=== PATIENT | male | born 1965 | race American Indian/Alaskan Native ===

== ENCOUNTER 2017-07-19 11:19 | Inpatient (IN) | payer OTHER ==
[2017-07-19] MEDS ORDERED: Sodium Chloride 0.9% 1,000 ML IV STA ×4 (11:33→13:58)
[2017-07-19] MEDS ORDERED: Glucagon Recombinant 1 mg Inj IM PRN ×2 (11:34→22:18)
[2017-07-19] MEDS ORDERED: Dextrose 50% SYRINGE Inj (50 ml) IV PRN ×2 (11:34→22:18)
[2017-07-19] MEDS ORDERED: Insulin Regular 100 units/ml SC STA (11:34)
[2017-07-19] MEDS ORDERED: Insulin Regular 100 units/ml ONE (11:43)
[2017-07-19] MEDS ORDERED: Insulin Regular 100 units/ml IV STA (11:45)
--- NOTE | 2017-07-19 11:54 | ED PDOC ---
Hyperglycemia/Hypoglycemia Time Seen by Provider: 07/19/17 11:24 Chief Complaint (Nursing): High Blood Sugar Chief Complaint (Provider): High Blood Sugar History Per: EMS History/Exam Limitations: other (patient unresponsive upon ED arrival ) Onset/Duration Of Symptoms: Hrs (prior to arrival ) : The patient does not have any of the infectious symptoms listed except for those marked. Additional Complaint(s): Jose Reina is a 52 year old male brought to the ED via paramedics after being found unresponsive with rapid breathing. The patients Accucheck levels in the field were above 500. Upon arrival, patient is unresponsive, therefore unable to provide further history. PMD: TBD Past Medical History Reviewed: Historical Data, Nursing Documentation, Vital Signs Vital Signs: Last Vital Signs Temp 99.6 F 07/19/17 11:22 Pulse 131 H 07/19/17 11:22 Resp 26 H 07/19/17 11:22 BP 113/82 07/19/17 11:22 Pulse Ox 94 L 07/19/17 11:22 - Family History Family History: States: Unknown Family Hx - Allergies Allergies/Adverse Reactions: Allergies Allergy/AdvReac Type Severity Reaction Status Date / Time Unobtainable Allergy Verified 07/19/17 11:22 Review of Systems Review Of Systems: ROS cannot be obtained secondary to pt's inabilty to answer questions. (patient unresponsive, therefore unable to obtain history) Physical Exam - Reviewed Nursing Documentation Reviewed: Yes Vital Signs Reviewed: Yes - Physical Exam Appears: Positive for: Non-toxic Head Exam: Positive for: ATRAUMATIC, NORMOCEPHALIC ENT: Positive for: Pharynx Is (mucous membranes dry ) Cardiovascular/Chest: Positive for: Regular Rate, Rhythm (regular rhythm ), Tachycardia Respiratory: Positive for: Normal Breath Sounds (clear to ausculatation bilaterally ), Other (rapid breathing ) Gastrointestinal/Abdominal: Positive for: Normal Exam, Soft. Negative for: Tenderness Extremity: Positive for: Normal ROM. Negative for: Deformity, Swelling Neurologic/Psych: Positive for: Other (responsive to painful stimuli by withdrawing ). Negative for: Motor/Sensory Deficits - ECG O2 Sat by Pulse Oximetry: 94 (RA) Pulse Ox Interpretation: Normal - Progress Re-evaluation Time: 12:04 Condition: Re-examined, Unchanged - Critical Care Total Time (In Min): 30 Documented Critical Care: Time excludes all time spent performint seperately billable procedures Medical Decision Making Medical Decision Making: Time: 11:24 Impression: Patient unresponsive, elevated Accucheck levels Plan: * ABG * ED EKG * CMP * CBC (with differential) * Glucose, Blood, POC * Hypoglycemia Oral Treatment PRN * Dextrose 50% Inj IV * Glucagen Diagnostic kit IM PRN * Glutose 15 PO PRN * HumuLIN R 10 units SC * HumuLIN R 10 units IV * NS 0.9% 100 ml HumuLIN R 100 units IV 11 units/hr * NS 0.9% 1,000 ml IV 1,000 mls/hr * [RAD] Chest Portable * Reevaluation Scribe Attestation: Documented by Yadira Rojas, acting as a scribe for Odell Castellon MD. Provider Scribe Attestation: All medical record entries made by the Scribe were at my direction and personally dictated by me. I have reviewed the chart and agree that the record accurately reflects my personal performance of the history, physical exam, medical decision making, and the department course for this patient. I have also personally directed, reviewed, and agree with the discharge instructions and disposition. Disposition - Clinical Impression Clinical Impression: DKA (diabetic ketoacidosis) - Patient ED Disposition Is Patient to be Admitted: Yes - Disposition Referrals: Provider GERHARD, [Primary Care Provider] - Disposition Time: 12:03 Condition: GUARDED Forms: [employer] (Romanian) - Pt Status Changed To: Hospital Disposition Of: Inpatient - Admit Certification Admit to Inpatient:: After my assessment, the patient will require hospitalization for at least two midnights. This is because of the severity of symptoms shown, intensity of services needed, and/or the medical risk in this patient being treated as an outpatient. - POA Present On Arrival: None
[2017-07-19 11:58] LABS: ABG ALLEN TEST YES; ARTERIAL BLOOD GAS HCO3 5.8 mmol/L (21-28); ARTERIAL BLOOD GAS PH 7.09 (7.35-7.45); ARTERIAL BLOOD GAS PO2 106 mm/Hg (80-100)
[2017-07-19 11:59] LABS: BASO # 0.1 K/uL (0.0-0.2); BASO % 0.4 % (0.0-2.0); HEMATOCRIT 50.2 % (35.0-51.0); LYMPH # 0.7 K/uL (1.0-4.3); LYMPH % 4.2 % (20.0-40.0); MEAN CELL VOLUME 95.2 fl (80.0-94.0); MEAN CORPUSCULAR HEMOGLOBIN 29.2 pg (27.0-31.0); MEAN CORPUSCULAR HGB CONC 30.7 g/dL (33.0-37.0); MONO % 6.2 % (0.0-10.0); NEUT # 14.2 K/uL (1.8-7.0); NEUT % 89.2 % (50.0-75.0); PLATELET COUNT 363 K/uL (130-400); WHITE BLOOD COUNT 15.9 K/uL (4.8-10.8)
--- NOTE | 2017-07-19 12:41 | CARD ---
APPROVED REPORT EKG Measurement Heart [id number] <Conclusion> Sinus tachycardia Low voltage QRS Poor R wave progression V1 To V3 ? Old Anterior wall NC Abnormal ECG
[2017-07-19 12:59] LABS: MYELOCYTE 1 % (0-0); NEUTROPHIL 89 % (42-75); TOTAL CELLS COUNTED 100
[2017-07-19 13:24] LABS: ALKALINE PHOSPHATASE 148 U/L (38-126); ALT/SGPT 21 U/L (21-72); AST/SGOT 14 U/L (17-59); BILIRUBIN,TOTAL 0.5 mg/dl (0.2-1.3); BLOOD UREA NITROGEN 46 mg/dl (9-20); CALCIUM 9.6 mg/dL (8.4-10.2); CHLORIDE 111 mmol/L (98-107); GFR AFRICAN-AMERICAN 29; POTASSIUM 6.3 MMOL/L (3.6-5.0); SODIUM 146 mmol/l (132-148); TOTAL PROTEIN 8.7 G/DL (6.3-8.2)
[2017-07-19 13:30] LABS: GLUCOSE,RANDOM 1022 mg/dL (75-110)
[2017-07-19 13:32] LABS: CARBON DIOXIDE < 5 mmol/L (22-30)
--- NOTE | 2017-07-19 15:26 | CP.CCUPN ---
CCU Subjective - Physician Review Events Since Last Encounter (Free Text): 07/19/17 15:24 52 male with history of asthma, allergies, newly diagnosed DM was brought to ER for polydypsia, polyuria, lethergy, no chest pain, no cough, no fever, foun to have hyperglycemia with DKA CCU Objective - Vital Signs / Intake & Output Vital Signs (Last 4 hours): Vital Signs Temp Pulse Resp BP Pulse Ox 07/19/17 14:39 98.0 F 120 H 29 H 149/93 H 100 07/19/17 12:31 129 H 31 H 142/57 L 98 07/19/17 12:19 134 H 40 H 116/76 96 07/19/17 12:04 94 L Intake and Output (Last 8hrs): Intake & Output 07/19/17 07/19/17 07/19/17 06:59 14:59 22:59 Weight 260 lb - Physical Exam Head: Positive for: Atraumatic, Normocephalic Pupils: Positive for: PERRL Extroacular Muscles: Positive for: EOMI Conjunctiva: Positive for: Normal Mouth: Positive for: Dry Pharnyx: Positive for: Normal Nose (External): Positive for: Atraumatic Nose (Internal): Positive for: Normal Inspection Neck: Positive for: Normal Range of Motion Respiratory/Chest: Positive for: Clear to Auscultation Cardiovascular: Positive for: Normal S1, S2, Tachycardic Abdomen: Positive for: Normal Bowel Sounds Upper Extremity: Positive for: Normal Inspection Lower Extremity: Positive for: Normal Inspection Skin: Positive for: Warm, Dry Psychiatric: Positive for: Alert, Lethargic - Medications Active Medications: Active Medications Generic Name Dose Route Start Last Admin Trade Name Freq PRN Reason Stop Dose Admin Dextrose 0 ml 07/19/17 11:34 Dextrose 50% Inj IV STAT PRN Hypoglycemia Protocol Protocol Dextrose 0 gm 07/19/17 11:34 Glutose 15 PO ONCE PRN Hypoglycemia Protocol Protocol Glucagon 0 mg 07/19/17 11:34 Glucagen Diagnostic Kit IM STAT PRN Hypoglycemia Protocol Protocol Insulin Human Regular 100 101 mls @ 11.11 mls/hr 07/19/17 11:45 07/19/17 12: 33 units/ Sodium Chloride IV 07/19/17 20:50 11.11 mls/hr .[id number] PREETHI Administration Protocol 11 UNITS/HR - Patient Studies Lab Studies: Lab Studies 07/19/17 07/19/17 07/19/17 Range/Units 15:11 12:45 11:47 WBC (4.8-10.8) K/uL RBC (4.40-5.90) Mil/uL Hgb (12.0-18.0) g/dL Hct (35.0-51.0) % MCV (80.0-94.0) fl MCH (27.0-31.0) pg MCHC (33.0-37.0) g/dL RDW (11.5-14.5) % Plt Count (130-400) K/uL MPV (7.2-11.7) fl Neut % (Auto) (50.0-75.0) % Lymph % (Auto) (20.0-40.0) % [place] % (Auto) (0.0-10.0) % Eos % (Auto) (0.0-4.0) % Baso % (Auto) (0.0-2.0) % Neut # (1.8-7.0) K/uL Lymph # (1.0-4.3) K/uL [place] # (0.0-0.8) K/uL Eos # (0.0-0.7) K/uL Baso # (0.0-0.2) K/uL Neutrophils % (Manual) (42-75) % Lymphocytes % (Manual) (20-50) % Monocytes % (Manual) (0-10) % Myelocytes % (0-0) % Platelet Estimate (NORMAL) Anisocytosis (manual) pCO2 10 L* (35-45) mm/Hg pO2 106 H (80-100) mm/Hg HCO3 5.8 L* (21-28) mmol/L ABG pH 7.09 L* (7.35-7.45) ABG Total CO2 3.3 L (22-28) mmol/L ABG O2 Saturation 100.4 H (95-98) % ABG Base Excess -24.5 L (-2.0-3.0) mmol/L Syed Test Yes ABG Potassium 4.7 (3.6-5.2) mmol/L A-a O2 Difference 595.0 mm/Hg Sodium 146 142.0 (132-148) mmol/L Chloride 111 H 110.0 H (98-107) mmol/L Glucose > 750 H* (75-110) mg/dL Lactate 3.7 H (0.7-2.1) mmol/L FiO2 100.0 % Crit Value Called To Dr niecy rodarte Crit Value Called By 292 Crit Value Read Back Y Blood Gas Notified Time 1157 Potassium 6.3 H* (3.6-5.0) MMOL/L Carbon Dioxide < 5 L* (22-30) mmol/L Anion Gap 36 H (10-20) BUN 46 H (9-20) mg/dl Creatinine 2.8 H (0.8-1.5) mg/dl Est GFR ( Amer) 29 Est GFR (Non-Af Amer) 24 POC Glucose (mg/dL) > 500 H* (65-110) mg/dL Random Glucose 1022 H* (75-110) mg/dL Calcium 9.6 (8.4-10.2) mg/dL Total Bilirubin 0.5 (0.2-1.3) mg/dl AST 14 L (17-59) U/L ALT 21 (21-72) U/L Alkaline Phosphatase 148 H (38-126) U/L Total Protein 8.7 H (6.3-8.2) G/DL Albumin 4.4 (3.5-5.0) g/dL Globulin 4.3 H (2.2-3.9) gm/dL Albumin/Globulin Ratio 1.0 (1.0-2.1) Arterial Blood Potassium 4.7 (3.6-5.2) mmol/L 07/19/17 Range/Units 11:39 WBC 15.9 H (4.8-10.8) K/uL RBC 5.27 (4.40-5.90) Mil/uL Hgb 15.4 (12.0-18.0) g/dL Hct 50.2 (35.0-51.0) % MCV 95.2 H (80.0-94.0) fl MCH 29.2 (27.0-31.0) pg MCHC 30.7 L (33.0-37.0) g/dL RDW 15.0 H (11.5-14.5) % Plt Count 363 (130-400) K/uL MPV 11.0 (7.2-11.7) fl Neut % (Auto) 89.2 H (50.0-75.0) % Lymph % (Auto) 4.2 L (20.0-40.0) % [place] % (Auto) 6.2 (0.0-10.0) % Eos % (Auto) 0.0 (0.0-4.0) % Baso % (Auto) 0.4 (0.0-2.0) % Neut # 14.2 H (1.8-7.0) K/uL Lymph # 0.7 L (1.0-4.3) K/uL [place] # 1.0 H (0.0-0.8) K/uL Eos # 0.0 (0.0-0.7) K/uL Baso # 0.1 (0.0-0.2) K/uL Neutrophils % (Manual) 89 H (42-75) % Lymphocytes % (Manual) 4 L (20-50) % Monocytes % (Manual) 6 (0-10) % Myelocytes % 1 H (0-0) % Platelet Estimate Normal (NORMAL) Anisocytosis (manual) Slight pCO2 (35-45) mm/Hg pO2 (80-100) mm/Hg HCO3 (21-28) mmol/L ABG pH (7.35-7.45) ABG Total CO2 (22-28) mmol/L ABG O2 Saturation (95-98) % ABG Base Excess (-2.0-3.0) mmol/L Syed Test ABG Potassium (3.6-5.2) mmol/L A-a O2 Difference mm/Hg Sodium (132-148) mmol/L Chloride (98-107) mmol/L Glucose (75-110) mg/dL Lactate (0.7-2.1) mmol/L FiO2 % Crit Value Called To Crit Value Called By Crit Value Read Back Blood Gas Notified Time Potassium (3.6-5.0) MMOL/L Carbon Dioxide (22-30) mmol/L Anion Gap (10-20) BUN (9-20) mg/dl Creatinine (0.8-1.5) mg/dl Est GFR ( Amer) Est GFR (Non-Af Amer) POC Glucose (mg/dL) (65-110) mg/dL Random Glucose (75-110) mg/dL Calcium (8.4-10.2) mg/dL Total Bilirubin (0.2-1.3) mg/dl AST (17-59) U/L ALT (21-72) U/L Alkaline Phosphatase (38-126) U/L Total Protein (6.3-8.2) G/DL Albumin (3.5-5.0) g/dL Globulin (2.2-3.9) gm/dL Albumin/Globulin Ratio (1.0-2.1) Arterial Blood Potassium (3.6-5.2) mmol/L Laboratory Results - last 24 hr 07/19/17 07/19/17 07/19/17 11:39 11:47 12:45 WBC 15.9 H RBC 5.27 Hgb 15.4 Hct 50.2 MCV 95.2 H MCH 29.2 MCHC 30.7 L RDW 15.0 H Plt Count 363 MPV 11.0 Neut % (Auto) 89.2 H Lymph % (Auto) 4.2 L [place] % (Auto) 6.2 Eos % (Auto) 0.0 Baso % (Auto) 0.4 Neut # 14.2 H Lymph # 0.7 L [place] # 1.0 H Eos # 0.0 Baso # 0.1 Neutrophils % (Manual) 89 H Lymphocytes % (Manual) 4 L Monocytes % (Manual) 6 Myelocytes % 1 H Platelet Estimate Normal Anisocytosis (manual) Slight pCO2 10 L* pO2 106 H HCO3 5.8 L* ABG pH 7.09 L* ABG Total CO2 3.3 L ABG O2 Saturation 100.4 H ABG Base Excess -24.5 L Syed Test Yes ABG Potassium 4.7 A-a O2 Difference 595.0 Sodium 142.0 146 Chloride 110.0 H 111 H Glucose > 750 H* Lactate 3.7 H FiO2 100.0 Crit Value Called To Dr niecy rodarte Crit Value Called By 292 Crit Value Read Back Y Blood Gas Notified Time 1157 Potassium 6.3 H* Carbon Dioxide < 5 L* Anion Gap 36 H BUN 46 H Creatinine 2.8 H Est GFR ( Amer) 29 Est GFR (Non-Af Amer) 24 POC Glucose (mg/dL) Random Glucose 1022 H* Calcium 9.6 Total Bilirubin 0.5 AST 14 L ALT 21 Alkaline Phosphatase 148 H Total Protein 8.7 H Albumin 4.4 Globulin 4.3 H Albumin/Globulin Ratio 1.0 Arterial Blood Potassium 4.7 07/19/17 15:11 WBC RBC Hgb Hct MCV MCH MCHC RDW Plt Count MPV Neut % (Auto) Lymph % (Auto) [place] % (Auto) Eos % (Auto) Baso % (Auto) Neut # Lymph # [place] # Eos # Baso # Neutrophils % (Manual) Lymphocytes % (Manual) Monocytes % (Manual) Myelocytes % Platelet Estimate Anisocytosis (manual) pCO2 pO2 HCO3 ABG pH ABG Total CO2 ABG O2 Saturation ABG Base Excess Syed Test ABG Potassium A-a O2 Difference Sodium Chloride Glucose Lactate FiO2 Crit Value Called To Crit Value Called By Crit Value Read Back Blood Gas Notified Time Potassium Carbon Dioxide Anion Gap BUN Creatinine Est GFR ( Amer) Est GFR (Non-Af Amer) POC Glucose (mg/dL) > 500 H* Random Glucose Calcium Total Bilirubin AST ALT Alkaline Phosphatase Total Protein Albumin Globulin Albumin/Globulin Ratio Arterial Blood Potassium EKG/Cardiology Studies: Cardiology / EKG Studies 07/19/17 11:33 ELECTROCARDIOGRAM Stat Comment: Mode Of Transportation: Reason For Exam: DKA 07/19/17 13:58 ELECTROCARDIOGRAM Stat Comment: Mode Of Transportation: Reason For Exam: DKA Assessment/Plan - Assessment and Plan (Free Text) Assessment: A/P DKA, hyperglycemia, newly diagnosed DM, h/o asthma, allergies, dehydration - IV fluid - IV insulin - Follow up electrolyte - Continue DKA insulin prtocol critical care 35 min
--- NOTE | 2017-07-19 15:53 | CP.PCM.HP ---
History of Present Illness - History of Present Illness History of Present Illness: CC: Unresponsive and SOB History of Present Illness: A 52 year old male AAM brought to the ED via paramedics after being found unresponsive with rapid breathing. The patients Accucheck levels in the field were above 500. Upon arrival, patient was unresponsive, therefore unable to provide further history. Recent Diagnosis of DM II but patient did not take his medications. In the ER, patient was found to have Severe DKA with Blood sugar of 1022 mg/dl and with Severe Metabolic Acidosis with PH 7.08, Bicarb <5 and AG 36. Patient Mental status slightly improved with IVF Bolus and IV Regular Insulin, and admitted to ICU on Regualr Insulin Infusion, IVF and Close monitoring of Electrolytes and Neuro checks. Present on Admission - Present on Admission Any Indicators Present on Admission: Yes History of DVT/PE: No History of Uncontrolled Diabetes: Yes Urinary Catheter: No Decubitus Ulcer Present: No Review of Systems - Review of Systems All systems: reviewed and no additional remarkable complaints except Past Patient History - Infectious Disease Hx of Infectious Diseases: None - Past Medical History & Family History Past Medical History?: Yes Past Family History: Reviewed and not pertinent - Past Social History Smoking Status: Never Smoked Alcohol: Social Drugs: Denies - CARDIAC Hx Cardiac Disorders: Yes (HTN) - PULMONARY Hx Respiratory Disorders: Yes (Allergies) - NEUROLOGICAL Hx Neurological Disorder: No - HEENT Hx HEENT Problems: No - RENAL Hx Chronic Kidney Disease: No - ENDOCRINE/METABOLIC Hx Endocrine Disorders: Yes Hx Diabetes Mellitus Type 2: Yes - HEMATOLOGICAL/ONCOLOGICAL Hx Blood Disorders: No - INTEGUMENTARY Hx Dermatological Problems: No - MUSCULOSKELETAL/RHEUMATOLOGICAL Hx Musculoskeletal Disorders: No Hx Falls: No - GASTROINTESTINAL Hx Gastrointestinal Disorders: No - GENITOURINARY/GYNECOLOGICAL Hx Genitourinary Disorders: No - PSYCHIATRIC Hx Psychophysiologic Disorder: No Hx Substance Use: No - SURGICAL HISTORY Hx Surgeries: No - ANESTHESIA Hx Anesthesia: No Meds Home Medications: Home Medication List Medication Instructions Recorded Confirmed Type Insulin Glargine,Hum.rec.anlog 46 unit SQ HS #1 insuln.pen 07/23/17 Rx [Lantus Solostar] Insulin Lispro [Humalog Kwikpen 20 unit SQ AC #1 insuln.pen 07/23/17 Rx U-100] Allergies/Adverse Reactions: Allergies Allergy/AdvReac Type Severity Reaction Status Date / Time egg Allergy ITCHING Verified 07/19/17 12:24 seafood Allergy ITCHING Uncoded 07/19/17 12:24 Physical Exam - Constitutional Appears: Toxic, In Acute Distress, Confused - Head Exam Head Exam: ATRAUMATIC, NORMOCEPHALIC - Eye Exam Eye Exam: EOMI, Normal appearance, PERRL Pupil Exam: NORMAL ACCOMODATION, PERRL - ENT Exam ENT Exam: Mucous Membranes Dry - Neck Exam Neck exam: Positive for: Normal Inspection. Negative for: Lymphadenopathy, Meningismus - Respiratory Exam Respiratory Exam: Accessory Muscle Use, Clear to Auscultation Bilateral, Respiratory Distress - Cardiovascular Exam Cardiovascular Exam: Tachycardia, REGULAR RHYTHM, +S1, +S2 - GI/Abdominal Exam GI & Abdominal Exam: Normal Bowel Sounds, Soft. absent: Tenderness - Extremities Exam Extremities exam: Positive for: normal capillary refill Additional comments: Dark depigmentation to the B/L Lower Legs - Back Exam Back exam: NORMAL INSPECTION. absent: CVA tenderness (L), CVA tenderness (R) - Neurological Exam Neurological exam: CN II-XII Intact Additional comments: Confused. Moves all extremities. - Psychiatric Exam Psychiatric exam: Agitated, Anxious, Flat Affect - Skin Skin Exam: Dry, Intact, Normal Color, Warm Results - Vital Signs Recent Vital Signs: Last Vital Signs Temp 98.0 F 07/19/17 15:43 Pulse 120 H 07/19/17 15:43 Resp 29 H 07/19/17 15:43 BP 149/93 H 07/19/17 15:43 Pulse Ox 100 07/19/17 14:45 - Labs Result Diagrams: 07/21/17 08:20 07/23/17 08:51 Labs: Laboratory Results - last 24 hr 07/19/17 07/19/17 07/19/17 11:39 11:47 12:45 WBC 15.9 H RBC 5.27 Hgb 15.4 Hct 50.2 MCV 95.2 H MCH 29.2 MCHC 30.7 L RDW 15.0 H Plt Count 363 MPV 11.0 Neut % (Auto) 89.2 H Lymph % (Auto) 4.2 L [place] % (Auto) 6.2 Eos % (Auto) 0.0 Baso % (Auto) 0.4 Neut # 14.2 H Lymph # 0.7 L [place] # 1.0 H Eos # 0.0 Baso # 0.1 Neutrophils % (Manual) 89 H Lymphocytes % (Manual) 4 L Monocytes % (Manual) 6 Myelocytes % 1 H Platelet Estimate Normal Anisocytosis (manual) Slight pCO2 10 L* pO2 106 H HCO3 5.8 L* ABG pH 7.09 L* ABG Total CO2 3.3 L ABG O2 Saturation 100.4 H ABG Base Excess -24.5 L Syed Test Yes ABG Potassium 4.7 A-a O2 Difference 595.0 Sodium 142.0 146 Chloride 110.0 H 111 H Glucose > 750 H* Lactate 3.7 H FiO2 100.0 Crit Value Called To Dr niecy rodarte Crit Value Called By 292 Crit Value Read Back Y Blood Gas Notified Time 1157 Potassium 6.3 H* Carbon Dioxide < 5 L* Anion Gap 36 H BUN 46 H Creatinine 2.8 H Est GFR ( Amer) 29 Est GFR (Non-Af Amer) 24 POC Glucose (mg/dL) Random Glucose 1022 H* Calcium 9.6 Total Bilirubin 0.5 AST 14 L ALT 21 Alkaline Phosphatase 148 H Total Protein 8.7 H Albumin 4.4 Globulin 4.3 H Albumin/Globulin Ratio 1.0 Arterial Blood Potassium 4.7 07/19/17 15:11 WBC RBC Hgb Hct MCV MCH MCHC RDW Plt Count MPV Neut % (Auto) Lymph % (Auto) [place] % (Auto) Eos % (Auto) Baso % (Auto) Neut # Lymph # [place] # Eos # Baso # Neutrophils % (Manual) Lymphocytes % (Manual) Monocytes % (Manual) Myelocytes % Platelet Estimate Anisocytosis (manual) pCO2 pO2 HCO3 ABG pH ABG Total CO2 ABG O2 Saturation ABG Base Excess Syed Test ABG Potassium A-a O2 Difference Sodium Chloride Glucose Lactate FiO2 Crit Value Called To Crit Value Called By Crit Value Read Back Blood Gas Notified Time Potassium Carbon Dioxide Anion Gap BUN Creatinine Est GFR ( Amer) Est GFR (Non-Af Amer) POC Glucose (mg/dL) > 500 H* Random Glucose Calcium Total Bilirubin AST ALT Alkaline Phosphatase Total Protein Albumin Globulin Albumin/Globulin Ratio Arterial Blood Potassium - EKG Data EKG shows normal: Sinus rhythm Rate: Tachycardia (127/min) - EKG Data EKG comments: Poor R-wave progression V1 to V3. - Imaging and Cardiology Chest x-ray Status: Report reviewed by me Additional comment: IMPRESSION: No active disease. Assessment & Plan (1) DKA (diabetic ketoacidosis) Assessment and Plan: Altered Mental Status K[place]maul Breathing Non-compliant To Medication Admit to ICU NPO IVF Regular Insulin Infusion Monitor BMP, Mag and Phos Level q4hrs Repeat PH TSH Trop Lipase Endo consult Manuscript Reader on board Status: Acute Priority: High (2) DVT prophylaxis Status: Acute Priority: Medium
[2017-07-19] MEDS: Enoxaparin 30 mg Syringe SC SCH (16:05)
[2017-07-19 16:11] LABS: ALKALINE PHOSPHATASE 147 U/L (38-126); ALT/SGPT 19 U/L (21-72); AST/SGOT 11 U/L (17-59); BILIRUBIN,TOTAL 0.3 mg/dl (0.2-1.3); BLOOD UREA NITROGEN 44 mg/dl (9-20); CALCIUM 9.5 mg/dL (8.4-10.2); CHLORIDE 118 mmol/L (98-107); GFR AFRICAN-AMERICAN 41; POTASSIUM 5.2 MMOL/L (3.6-5.0); SODIUM 152 mmol/l (132-148); TOTAL PROTEIN 8.8 G/DL (6.3-8.2)
[2017-07-19 16:30] LABS: CARBON DIOXIDE < 5 mmol/L (22-30); GLUCOSE,RANDOM 717 mg/dL (75-110)
--- NOTE | 2017-07-19 16:32 | RAD ---
HISTORY: cough COMPARISON: No prior. FINDINGS: LUNGS: No active pulmonary disease. PLEURA: No significant pleural effusion identified, no pneumothorax apparent. CARDIOVASCULAR: Normal. OSSEOUS STRUCTURES: No significant abnormalities. VISUALIZED UPPER ABDOMEN: Normal. OTHER FINDINGS: None. IMPRESSION: No active disease.
[2017-07-19] MEDS: Sodium Chloride 0.9% 1,000 ML IV SCH ×2 (17:15→23:43)
[2017-07-19 19:42] LABS: RBC URINE 1 /hpf (0-3); URINE BACTERIA RARE (<OCC); URINE BILIRUBIN NEGATIVE (NEGATIVE); URINE BLOOD MODERATE (NEGATIVE); URINE COLOR STRAW (YELLOW); URINE GLUCOSE (UA) >=500 mg/dL (Normal); URINE KETONE 80 mg/dL (NEGATIVE); URINE LEUKOCYTE ESTERASE NEG Leu/uL (Negative); URINE PROTEIN NEGATIVE (NEGATIVE); URINE UROBILINOGEN 0.2-1.0 mg/dL (0.2-1.0); WBC URINE < 1 /hpf (0-5)
[2017-07-19 21:06] LABS: BILIRUBIN,TOTAL 0.4 mg/dl (0.2-1.3); CALCIUM 9.7 mg/dL (8.4-10.2); POTASSIUM 4.9 MMOL/L (3.6-5.0)
[2017-07-20 06:34] LABS: ALKALINE PHOSPHATASE 121 U/L (38-126); ALT/SGPT 23 U/L (21-72); AST/SGOT 19 U/L (17-59); BILIRUBIN,TOTAL 0.3 mg/dl (0.2-1.3); BLOOD UREA NITROGEN 33 mg/dl (9-20); CALCIUM 9.8 mg/dL (8.4-10.2); CARBON DIOXIDE 16 mmol/L (22-30); CHLORIDE 132 mmol/L (98-107); GFR AFRICAN-AMERICAN > 60; GLUCOSE,RANDOM 187 mg/dL (75-110); POTASSIUM 4.6 MMOL/L (3.6-5.0); SODIUM 165 mmol/l (132-148); TOTAL PROTEIN 8.4 G/DL (6.3-8.2)
[2017-07-20] MEDS: Sodium Chloride 0.9% 1,000 ML IV SCH (06:43)
--- NOTE | 2017-07-20 07:32 | CP.CCUPN ---
CCU Subjective - Physician Review Events Since Last Encounter (Free Text): 07/20/17 07:30 Patient awake, lethargic, no fever, no vomiting, no pressors, on insulin drip, events reviewed CCU Objective - Vital Signs / Intake & Output Intake and Output (Last 8hrs): Intake & Output 07/19/17 07/20/17 07/20/17 22:59 06:59 14:59 Intake Total 1640 331 0 Output Total 850 Balance 790 331 0 Intake: IV 1640 331 0 Output: Urine 850 Urine, Voided 850 - Physical Exam Head: Positive for: Atraumatic, Normocephalic Pupils: Positive for: PERRL Extroacular Muscles: Positive for: EOMI Conjunctiva: Positive for: Normal Mouth: Positive for: Dry Pharnyx: Positive for: Normal Nose (External): Positive for: Atraumatic Nose (Internal): Positive for: Normal Inspection Neck: Positive for: Normal Range of Motion Respiratory/Chest: Positive for: Clear to Auscultation Cardiovascular: Positive for: Normal S1, S2, Tachycardic Abdomen: Positive for: Normal Bowel Sounds Upper Extremity: Positive for: Normal Inspection Lower Extremity: Positive for: Normal Inspection Skin: Positive for: Warm, Dry Psychiatric: Positive for: Alert, Lethargic - Medications Active Medications: Active Medications Generic Name Dose Route Start Last Admin Trade Name Freq PRN Reason Stop Dose Admin Dextrose 0 ml 07/19/17 11:34 Dextrose 50% Inj IV STAT PRN Hypoglycemia Protocol Protocol Dextrose 0 gm 07/19/17 11:34 Glutose 15 PO ONCE PRN Hypoglycemia Protocol Protocol Dextrose 0 ml 07/19/17 22:18 Dextrose 50% Inj IV STAT PRN Hypoglycemia Protocol Protocol Dextrose 0 gm 07/19/17 22:18 Glutose 15 PO ONCE PRN Hypoglycemia Protocol Protocol Enoxaparin Sodium 30 mg 07/19/17 15:30 07/19/17 16:05 Lovenox SC 30 mg DAILY PREETHI Administration Protocol Glucagon 0 mg 07/19/17 11:34 Glucagen Diagnostic Kit IM STAT PRN Hypoglycemia Protocol Protocol Glucagon 0 mg 07/19/17 22:18 Glucagen Diagnostic Kit IM STAT PRN Hypoglycemia Protocol Protocol Sodium Chloride 1,000 mls @ 150 mls/hr 07/19/17 17:15 07/20/17 06:43 Sodium Chloride 0.9% IV 07/20/17 17:01 150 mls/hr .[id number] PREETHI Administration Insulin Human Regular 100 101 mls @ 6.06 mls/hr 07/19/17 22:30 07/20/17 07:27 units/ Sodium Chloride IV 2 units/hr .[id number] PREETHI 2.02 mls/hr Protocol Titration 6 UNITS/HR - Patient Studies Lab Studies: Lab Studies 07/20/17 07/20/17 07/20/17 Range/Units 07:25 06:18 05:30 WBC (4.8-10.8) K/uL RBC (4.40-5.90) Mil/uL Hgb (12.0-18.0) g/dL Hct (35.0-51.0) % MCV (80.0-94.0) fl MCH (27.0-31.0) pg MCHC (33.0-37.0) g/dL RDW (11.5-14.5) % Plt Count (130-400) K/uL MPV (7.2-11.7) fl Neut % (Auto) (50.0-75.0) % Lymph % (Auto) (20.0-40.0) % [place] % (Auto) (0.0-10.0) % Eos % (Auto) (0.0-4.0) % Baso % (Auto) (0.0-2.0) % Neut # (1.8-7.0) K/uL Lymph # (1.0-4.3) K/uL [place] # (0.0-0.8) K/uL Eos # (0.0-0.7) K/uL Baso # (0.0-0.2) K/uL Neutrophils % (Manual) (42-75) % Lymphocytes % (Manual) (20-50) % Monocytes % (Manual) (0-10) % Myelocytes % (0-0) % Platelet Estimate (NORMAL) Anisocytosis (manual) pCO2 (35-45) mm/Hg pO2 (80-100) mm/Hg HCO3 (21-28) mmol/L ABG pH (7.35-7.45) ABG Total CO2 (22-28) mmol/L ABG O2 Saturation (95-98) % ABG Base Excess (-2.0-3.0) mmol/L Syed Test ABG Potassium (3.6-5.2) mmol/L A-a O2 Difference mm/Hg Sodium 165 H* (132-148) mmol/L Chloride 132 H (98-107) mmol/L Glucose (75-110) mg/dL Lactate (0.7-2.1) mmol/L FiO2 % Crit Value Called To Crit Value Called By Crit Value Read Back Blood Gas Notified Time Potassium 4.6 (3.6-5.0) MMOL/L Carbon Dioxide 16 L (22-30) mmol/L Anion Gap 22 H (10-20) BUN 33 H (9-20) mg/dl Creatinine 1.4 (0.8-1.5) mg/dl Est GFR ( Amer) > 60 Est GFR (Non-Af Amer) 54 POC Glucose (mg/dL) 190 H 212 H (65-110) mg/dL Random Glucose 187 H (75-110) mg/dL Calcium 9.8 (8.4-10.2) mg/dL Total Bilirubin 0.3 (0.2-1.3) mg/dl AST 19 (17-59) U/L ALT 23 (21-72) U/L Alkaline Phosphatase 121 (38-126) U/L Total Protein 8.4 H (6.3-8.2) G/DL Albumin 4.1 (3.5-5.0) g/dL Globulin 4.3 H (2.2-3.9) gm/dL Albumin/Globulin Ratio 1.0 (1.0-2.1) Arterial Blood Potassium (3.6-5.2) mmol/L Urine Color (YELLOW) Urine Clarity (Clear) Urine pH (5.0-8.0) Ur Specific [place] (1.003-1.030) Urine Protein (NEGATIVE) mg/dL Urine Glucose (UA) (Normal) mg/dL Urine Ketones (NEGATIVE) mg/dL Urine Blood (NEGATIVE) Urine Nitrate (NEGATIVE) Urine Bilirubin (NEGATIVE) Urine Urobilinogen (0.2-1.0) mg/dL Ur Leukocyte Esterase (Negative) Francis/uL Urine RBC (Auto) (0-3) /hpf Urine Microscopic WBC (0-5) /hpf Urine Bacteria (<OCC) 07/20/17 07/20/1717 Range/Units 04:43 03:45 02:41 WBC (4.8-10.8) K/uL RBC (4.40-5.90) Mil/uL Hgb (12.0-18.0) g/dL Hct (35.0-51.0) % MCV (80.0-94.0) fl MCH (27.0-31.0) pg MCHC (33.0-37.0) g/dL RDW (11.5-14.5) % Plt Count (130-400) K/uL MPV (7.2-11.7) fl Neut % (Auto) (50.0-75.0) % Lymph % (Auto) (20.0-40.0) % [place] % (Auto) (0.0-10.0) % Eos % (Auto) (0.0-4.0) % Baso % (Auto) (0.0-2.0) % Neut # (1.8-7.0) K/uL Lymph # (1.0-4.3) K/uL [place] # (0.0-0.8) K/uL Eos # (0.0-0.7) K/uL Baso # (0.0-0.2) K/uL Neutrophils % (Manual) (42-75) % Lymphocytes % (Manual) (20-50) % Monocytes % (Manual) (0-10) % Myelocytes % (0-0) % Platelet Estimate (NORMAL) Anisocytosis (manual) pCO2 (35-45) mm/Hg pO2 (80-100) mm/Hg HCO3 (21-28) mmol/L ABG pH (7.35-7.45) ABG Total CO2 (22-28) mmol/L ABG O2 Saturation (95-98) % ABG Base Excess (-2.0-3.0) mmol/L Syed Test ABG Potassium (3.6-5.2) mmol/L A-a O2 Difference mm/Hg Sodium (132-148) mmol/L Chloride (98-107) mmol/L Glucose (75-110) mg/dL Lactate (0.7-2.1) mmol/L FiO2 % Crit Value Called To Crit Value Called By Crit Value Read Back Blood Gas Notified Time Potassium (3.6-5.0) MMOL/L Carbon Dioxide (22-30) mmol/L Anion Gap (10-20) BUN (9-20) mg/dl Creatinine (0.8-1.5) mg/dl Est GFR ( Amer) Est GFR (Non-Af Amer) POC Glucose (mg/dL) 172 H 290 H 252 H (65-110) mg/dL Random Glucose (75-110) mg/dL Calcium (8.4-10.2) mg/dL Total Bilirubin (0.2-1.3) mg/dl AST (17-59) U/L ALT (21-72) U/L Alkaline Phosphatase (38-126) U/L Total Protein (6.3-8.2) G/DL Albumin (3.5-5.0) g/dL Globulin (2.2-3.9) gm/dL Albumin/Globulin Ratio (1.0-2.1) Arterial Blood Potassium (3.6-5.2) mmol/L Urine Color (YELLOW) Urine Clarity (Clear) Urine pH (5.0-8.0) Ur Specific [place] (1.003-1.030) Urine Protein (NEGATIVE) mg/dL Urine Glucose (UA) (Normal) mg/dL Urine Ketones (NEGATIVE) mg/dL Urine Blood (NEGATIVE) Urine Nitrate (NEGATIVE) Urine Bilirubin (NEGATIVE) Urine Urobilinogen (0.2-1.0) mg/dL Ur Leukocyte Esterase (Negative) Francis/uL Urine RBC (Auto) (0-3) /hpf Urine Microscopic WBC (0-5) /hpf Urine Bacteria (<OCC) 07/20/17 07/20/17 07/19/17 Range/Units 01:57 00:35 22:58 WBC (4.8-10.8) K/uL RBC (4.40-5.90) Mil/uL Hgb (12.0-18.0) g/dL Hct (35.0-51.0) % MCV (80.0-94.0) fl MCH (27.0-31.0) pg MCHC (33.0-37.0) g/dL RDW (11.5-14.5) % Plt Count (130-400) K/uL MPV (7.2-11.7) fl Neut % (Auto) (50.0-75.0) % Lymph % (Auto) (20.0-40.0) % [place] % (Auto) (0.0-10.0) % Eos % (Auto) (0.0-4.0) % Baso % (Auto) (0.0-2.0) % Neut # (1.8-7.0) K/uL Lymph # (1.0-4.3) K/uL [place] # (0.0-0.8) K/uL Eos # (0.0-0.7) K/uL Baso # (0.0-0.2) K/uL Neutrophils % (Manual) (42-75) % Lymphocytes % (Manual) (20-50) % Monocytes % (Manual) (0-10) % Myelocytes % (0-0) % Platelet Estimate (NORMAL) Anisocytosis (manual) pCO2 (35-45) mm/Hg pO2 (80-100) mm/Hg HCO3 (21-28) mmol/L ABG pH (7.35-7.45) ABG Total CO2 (22-28) mmol/L ABG O2 Saturation (95-98) % ABG Base Excess (-2.0-3.0) mmol/L Syed Test ABG Potassium (3.6-5.2) mmol/L A-a O2 Difference mm/Hg Sodium (132-148) mmol/L Chloride (98-107) mmol/L Glucose (75-110) mg/dL Lactate (0.7-2.1) mmol/L FiO2 % Crit Value Called To Crit Value Called By Crit Value Read Back Blood Gas Notified Time Potassium (3.6-5.0) MMOL/L Carbon Dioxide (22-30) mmol/L Anion Gap (10-20) BUN (9-20) mg/dl Creatinine (0.8-1.5) mg/dl Est GFR ( Amer) Est GFR (Non-Af Amer) POC Glucose (mg/dL) 251 H 258 H 269 H (65-110) mg/dL Random Glucose (75-110) mg/dL Calcium (8.4-10.2) mg/dL Total Bilirubin (0.2-1.3) mg/dl AST (17-59) U/L ALT (21-72) U/L Alkaline Phosphatase (38-126) U/L Total Protein (6.3-8.2) G/DL Albumin (3.5-5.0) g/dL Globulin (2.2-3.9) gm/dL Albumin/Globulin Ratio (1.0-2.1) Arterial Blood Potassium (3.6-5.2) mmol/L Urine Color (YELLOW) Urine Clarity (Clear) Urine pH (5.0-8.0) Ur Specific [place] (1.003-1.030) Urine Protein (NEGATIVE) mg/dL Urine Glucose (UA) (Normal) mg/dL Urine Ketones (NEGATIVE) mg/dL Urine Blood (NEGATIVE) Urine Nitrate (NEGATIVE) Urine Bilirubin (NEGATIVE) Urine Urobilinogen (0.2-1.0) mg/dL Ur Leukocyte Esterase (Negative) Francis/uL Urine RBC (Auto) (0-3) /hpf Urine Microscopic WBC (0-5) /hpf Urine Bacteria (<OCC) 07/19/17 07/19/17 07/19/17 Range/Units 22:11 20:09 20:00 WBC (4.8-10.8) K/uL RBC (4.40-5.90) Mil/uL Hgb (12.0-18.0) g/dL Hct (35.0-51.0) % MCV (80.0-94.0) fl MCH (27.0-31.0) pg MCHC (33.0-37.0) g/dL RDW (11.5-14.5) % Plt Count (130-400) K/uL MPV (7.2-11.7) fl Neut % (Auto) (50.0-75.0) % Lymph % (Auto) (20.0-40.0) % [place] % (Auto) (0.0-10.0) % Eos % (Auto) (0.0-4.0) % Baso % (Auto) (0.0-2.0) % Neut # (1.8-7.0) K/uL Lymph # (1.0-4.3) K/uL [place] # (0.0-0.8) K/uL Eos # (0.0-0.7) K/uL Baso # (0.0-0.2) K/uL Neutrophils % (Manual) (42-75) % Lymphocytes % (Manual) (20-50) % Monocytes % (Manual) (0-10) % Myelocytes % (0-0) % Platelet Estimate (NORMAL) Anisocytosis (manual) pCO2 (35-45) mm/Hg pO2 (80-100) mm/Hg HCO3 (21-28) mmol/L ABG pH (7.35-7.45) ABG Total CO2 (22-28) mmol/L ABG O2 Saturation (95-98) % ABG Base Excess (-2.0-3.0) mmol/L Syed Test ABG Potassium (3.6-5.2) mmol/L A-a O2 Difference mm/Hg Sodium 158 H (132-148) mmol/L Chloride 126 H (98-107) mmol/L Glucose (75-110) mg/dL Lactate (0.7-2.1) mmol/L FiO2 % Crit Value Called To Crit Value Called By Crit Value Read Back Blood Gas Notified Time Potassium 4.9 (3.6-5.0) MMOL/L Carbon Dioxide 11 L* D (22-30) mmol/L Anion Gap 26 H (10-20) BUN 40 H (9-20) mg/dl Creatinine 1.6 H (0.8-1.5) mg/dl Est GFR ( Amer) 56 Est GFR (Non-Af Amer) 46 POC Glucose (mg/dL) 318 H 403 H* (65-110) mg/dL Random Glucose 373 H (75-110) mg/dL Calcium 9.7 (8.4-10.2) mg/dL Total Bilirubin 0.4 (0.2-1.3) mg/dl AST 14 L D (17-59) U/L ALT 26 (21-72) U/L Alkaline Phosphatase 139 H (38-126) U/L Total Protein 9.0 H (6.3-8.2) G/DL Albumin 4.4 (3.5-5.0) g/dL Globulin 4.6 H (2.2-3.9) gm/dL Albumin/Globulin Ratio 1.0 (1.0-2.1) Arterial Blood Potassium (3.6-5.2) mmol/L Urine Color (YELLOW) Urine Clarity (Clear) Urine pH (5.0-8.0) Ur Specific [place] (1.003-1.030) Urine Protein (NEGATIVE) mg/dL Urine Glucose (UA) (Normal) mg/dL Urine Ketones (NEGATIVE) mg/dL Urine Blood (NEGATIVE) Urine Nitrate (NEGATIVE) Urine Bilirubin (NEGATIVE) Urine Urobilinogen (0.2-1.0) mg/dL Ur Leukocyte Esterase (Negative) Francis/uL Urine RBC (Auto) (0-3) /hpf Urine Microscopic WBC (0-5) /hpf Urine Bacteria (<OCC) 07/19/17 07/19/17 07/19/17 Range/Units 19:03 19:00 17:56 WBC (4.8-10.8) K/uL RBC (4.40-5.90) Mil/uL Hgb (12.0-18.0) g/dL Hct (35.0-51.0) % MCV (80.0-94.0) fl MCH (27.0-31.0) pg MCHC (33.0-37.0) g/dL RDW (11.5-14.5) % Plt Count (130-400) K/uL MPV (7.2-11.7) fl Neut % (Auto) (50.0-75.0) % Lymph % (Auto) (20.0-40.0) % [place] % (Auto) (0.0-10.0) % Eos % (Auto) (0.0-4.0) % Baso % (Auto) (0.0-2.0) % Neut # (1.8-7.0) K/uL Lymph # (1.0-4.3) K/uL [place] # (0.0-0.8) K/uL Eos # (0.0-0.7) K/uL Baso # (0.0-0.2) K/uL Neutrophils % (Manual) (42-75) % Lymphocytes % (Manual) (20-50) % Monocytes % (Manual) (0-10) % Myelocytes % (0-0) % Platelet Estimate (NORMAL) Anisocytosis (manual) pCO2 (35-45) mm/Hg pO2 (80-100) mm/Hg HCO3 (21-28) mmol/L ABG pH (7.35-7.45) ABG Total CO2 (22-28) mmol/L ABG O2 Saturation (95-98) % ABG Base Excess (-2.0-3.0) mmol/L Syed Test ABG Potassium (3.6-5.2) mmol/L A-a O2 Difference mm/Hg Sodium (132-148) mmol/L Chloride (98-107) mmol/L Glucose (75-110) mg/dL Lactate (0.7-2.1) mmol/L FiO2 % Crit Value Called To Crit Value Called By Crit Value Read Back Blood Gas Notified Time Potassium (3.6-5.0) MMOL/L Carbon Dioxide (22-30) mmol/L Anion Gap (10-20) BUN (9-20) mg/dl Creatinine (0.8-1.5) mg/dl Est GFR ( Amer) Est GFR (Non-Af Amer) POC Glucose (mg/dL) 392 H 409 H* (65-110) mg/dL Random Glucose (75-110) mg/dL Calcium (8.4-10.2) mg/dL Total Bilirubin (0.2-1.3) mg/dl AST (17-59) U/L ALT (21-72) U/L Alkaline Phosphatase (38-126) U/L Total Protein (6.3-8.2) G/DL Albumin (3.5-5.0) g/dL Globulin (2.2-3.9) gm/dL Albumin/Globulin Ratio (1.0-2.1) Arterial Blood Potassium (3.6-5.2) mmol/L Urine Color Straw (YELLOW) Urine Clarity Clear (Clear) Urine pH 5.0 (5.0-8.0) Ur Specific [place] 1.024 (1.003-1.030) Urine Protein Negative (NEGATIVE) mg/dL Urine Glucose (UA) >=500 (Normal) mg/dL Urine Ketones 80 (NEGATIVE) mg/dL Urine Blood Moderate (NEGATIVE) Urine Nitrate Negative (NEGATIVE) Urine Bilirubin Negative (NEGATIVE) Urine Urobilinogen 0.2-1.0 (0.2-1.0) mg/dL Ur Leukocyte Esterase Neg (Negative) Francis/uL Urine RBC (Auto) 1 (0-3) /hpf Urine Microscopic WBC < 1 (0-5) /hpf Urine Bacteria Rare (<OCC) 07/19/17 07/19/17 07/19/17 Range/Units 17:14 16:04 15:41 WBC (4.8-10.8) K/uL RBC (4.40-5.90) Mil/uL Hgb (12.0-18.0) g/dL Hct (35.0-51.0) % MCV (80.0-94.0) fl MCH (27.0-31.0) pg MCHC (33.0-37.0) g/dL RDW (11.5-14.5) % Plt Count (130-400) K/uL MPV (7.2-11.7) fl Neut % (Auto) (50.0-75.0) % Lymph % (Auto) (20.0-40.0) % [place] % (Auto) (0.0-10.0) % Eos % (Auto) (0.0-4.0) % Baso % (Auto) (0.0-2.0) % Neut # (1.8-7.0) K/uL Lymph # (1.0-4.3) K/uL [place] # (0.0-0.8) K/uL Eos # (0.0-0.7) K/uL Baso # (0.0-0.2) K/uL Neutrophils % (Manual) (42-75) % Lymphocytes % (Manual) (20-50) % Monocytes % (Manual) (0-10) % Myelocytes % (0-0) % Platelet Estimate (NORMAL) Anisocytosis (manual) pCO2 (35-45) mm/Hg pO2 (80-100) mm/Hg HCO3 (21-28) mmol/L ABG pH (7.35-7.45) ABG Total CO2 (22-28) mmol/L ABG O2 Saturation (95-98) % ABG Base Excess (-2.0-3.0) mmol/L Syed Test ABG Potassium (3.6-5.2) mmol/L A-a O2 Difference mm/Hg Sodium 152 H (132-148) mmol/L Chloride 118 H (98-107) mmol/L Glucose (75-110) mg/dL Lactate (0.7-2.1) mmol/L FiO2 % Crit Value Called To Crit Value Called By Crit Value Read Back Blood Gas Notified Time Potassium 5.2 H (3.6-5.0) MMOL/L Carbon Dioxide < 5 L* (22-30) mmol/L Anion Gap 34 H (10-20) BUN 44 H (9-20) mg/dl Creatinine 2.1 H (0.8-1.5) mg/dl Est GFR ( Amer) 41 Est GFR (Non-Af Amer) 34 POC Glucose (mg/dL) 477 H* > 500 H* (65-110) mg/dL Random Glucose 717 H* D (75-110) mg/dL Calcium 9.5 (8.4-10.2) mg/dL Total Bilirubin 0.3 (0.2-1.3) mg/dl AST 11 L D (17-59) U/L ALT 19 L (21-72) U/L Alkaline Phosphatase 147 H (38-126) U/L Total Protein 8.8 H (6.3-8.2) G/DL Albumin 4.4 (3.5-5.0) g/dL Globulin 4.4 H (2.2-3.9) gm/dL Albumin/Globulin Ratio 1.0 (1.0-2.1) Arterial Blood Potassium (3.6-5.2) mmol/L Urine Color (YELLOW) Urine Clarity (Clear) Urine pH (5.0-8.0) Ur Specific [place] (1.003-1.030) Urine Protein (NEGATIVE) mg/dL Urine Glucose (UA) (Normal) mg/dL Urine Ketones (NEGATIVE) mg/dL Urine Blood (NEGATIVE) Urine Nitrate (NEGATIVE) Urine Bilirubin (NEGATIVE) Urine Urobilinogen (0.2-1.0) mg/dL Ur Leukocyte Esterase (Negative) Francis/uL Urine RBC (Auto) (0-3) /hpf Urine Microscopic WBC (0-5) /hpf Urine Bacteria (<OCC) 07/19/17 07/19/17 07/19/17 Range/Units 15:11 13:34 12:45 WBC (4.8-10.8) K/uL RBC (4.40-5.90) Mil/uL Hgb (12.0-18.0) g/dL Hct (35.0-51.0) % MCV (80.0-94.0) fl MCH (27.0-31.0) pg MCHC (33.0-37.0) g/dL RDW (11.5-14.5) % Plt Count (130-400) K/uL MPV (7.2-11.7) fl Neut % (Auto) (50.0-75.0) % Lymph % (Auto) (20.0-40.0) % [place] % (Auto) (0.0-10.0) % Eos % (Auto) (0.0-4.0) % Baso % (Auto) (0.0-2.0) % Neut # (1.8-7.0) K/uL Lymph # (1.0-4.3) K/uL [place] # (0.0-0.8) K/uL Eos # (0.0-0.7) K/uL Baso # (0.0-0.2) K/uL Neutrophils % (Manual) (42-75) % Lymphocytes % (Manual) (20-50) % Monocytes % (Manual) (0-10) % Myelocytes % (0-0) % Platelet Estimate (NORMAL) Anisocytosis (manual) pCO2 (35-45) mm/Hg pO2 (80-100) mm/Hg HCO3 (21-28) mmol/L ABG pH (7.35-7.45) ABG Total CO2 (22-28) mmol/L ABG O2 Saturation (95-98) % ABG Base Excess (-2.0-3.0) mmol/L Syed Test ABG Potassium (3.6-5.2) mmol/L A-a O2 Difference mm/Hg Sodium 146 (132-148) mmol/L Chloride 111 H (98-107) mmol/L Glucose (75-110) mg/dL Lactate (0.7-2.1) mmol/L FiO2 % Crit Value Called To Crit Value Called By Crit Value Read Back Blood Gas Notified Time Potassium 6.3 H* (3.6-5.0) MMOL/L Carbon Dioxide < 5 L* (22-30) mmol/L Anion Gap 36 H (10-20) BUN 46 H (9-20) mg/dl Creatinine 2.8 H (0.8-1.5) mg/dl Est GFR ( Amer) 29 Est GFR (Non-Af Amer) 24 POC Glucose (mg/dL) > 500 H* > 500 H* (65-110) mg/dL Random Glucose 1022 H* (75-110) mg/dL Calcium 9.6 (8.4-10.2) mg/dL Total Bilirubin 0.5 (0.2-1.3) mg/dl AST 14 L (17-59) U/L ALT 21 (21-72) U/L Alkaline Phosphatase 148 H (38-126) U/L Total Protein 8.7 H (6.3-8.2) G/DL Albumin 4.4 (3.5-5.0) g/dL Globulin 4.3 H (2.2-3.9) gm/dL Albumin/Globulin Ratio 1.0 (1.0-2.1) Arterial Blood Potassium (3.6-5.2) mmol/L Urine Color (YELLOW) Urine Clarity (Clear) Urine pH (5.0-8.0) Ur Specific [place] (1.003-1.030) Urine Protein (NEGATIVE) mg/dL Urine Glucose (UA) (Normal) mg/dL Urine Ketones (NEGATIVE) mg/dL Urine Blood (NEGATIVE) Urine Nitrate (NEGATIVE) Urine Bilirubin (NEGATIVE) Urine Urobilinogen (0.2-1.0) mg/dL Ur Leukocyte Esterase (Negative) Francis/uL Urine RBC (Auto) (0-3) /hpf Urine Microscopic WBC (0-5) /hpf Urine Bacteria (<OCC) 07/19/17 07/19/17 07/19/17 Range/Units 12:29 11:47 11:39 WBC 15.9 H (4.8-10.8) K/uL RBC 5.27 (4.40-5.90) Mil/uL Hgb 15.4 (12.0-18.0) g/dL Hct 50.2 (35.0-51.0) % MCV 95.2 H (80.0-94.0) fl MCH 29.2 (27.0-31.0) pg MCHC 30.7 L (33.0-37.0) g/dL RDW 15.0 H (11.5-14.5) % Plt Count 363 (130-400) K/uL MPV 11.0 (7.2-11.7) fl Neut % (Auto) 89.2 H (50.0-75.0) % Lymph % (Auto) 4.2 L (20.0-40.0) % [place] % (Auto) 6.2 (0.0-10.0) % Eos % (Auto) 0.0 (0.0-4.0) % Baso % (Auto) 0.4 (0.0-2.0) % Neut # 14.2 H (1.8-7.0) K/uL Lymph # 0.7 L (1.0-4.3) K/uL [place] # 1.0 H (0.0-0.8) K/uL Eos # 0.0 (0.0-0.7) K/uL Baso # 0.1 (0.0-0.2) K/uL Neutrophils % (Manual) 89 H (42-75) % Lymphocytes % (Manual) 4 L (20-50) % Monocytes % (Manual) 6 (0-10) % Myelocytes % 1 H (0-0) % Platelet Estimate Normal (NORMAL) Anisocytosis (manual) Slight pCO2 10 L* (35-45) mm/Hg pO2 106 H (80-100) mm/Hg HCO3 5.8 L* (21-28) mmol/L ABG pH 7.09 L* (7.35-7.45) ABG Total CO2 3.3 L (22-28) mmol/L ABG O2 Saturation 100.4 H (95-98) % ABG Base Excess -24.5 L (-2.0-3.0) mmol/L Syed Test Yes ABG Potassium 4.7 (3.6-5.2) mmol/L A-a O2 Difference 595.0 mm/Hg Sodium 142.0 (132-148) mmol/L Chloride 110.0 H (98-107) mmol/L Glucose > 750 H* (75-110) mg/dL Lactate 3.7 H (0.7-2.1) mmol/L FiO2 100.0 % Crit Value Called To Dr niecy rodarte Crit Value Called By Maxwell Crit Value Read Back Y Blood Gas Notified Time 1157 Potassium (3.6-5.0) MMOL/L Carbon Dioxide (22-30) mmol/L Anion Gap (10-20) BUN (9-20) mg/dl Creatinine (0.8-1.5) mg/dl Est GFR ( Amer) Est GFR (Non-Af Amer) POC Glucose (mg/dL) > 500 H* (65-110) mg/dL Random Glucose (75-110) mg/dL Calcium (8.4-10.2) mg/dL Total Bilirubin (0.2-1.3) mg/dl AST (17-59) U/L ALT (21-72) U/L Alkaline Phosphatase (38-126) U/L Total Protein (6.3-8.2) G/DL Albumin (3.5-5.0) g/dL Globulin (2.2-3.9) gm/dL Albumin/Globulin Ratio (1.0-2.1) Arterial Blood Potassium 4.7 (3.6-5.2) mmol/L Urine Color (YELLOW) Urine Clarity (Clear) Urine pH (5.0-8.0) Ur Specific [place] (1.003-1.030) Urine Protein (NEGATIVE) mg/dL Urine Glucose (UA) (Normal) mg/dL Urine Ketones (NEGATIVE) mg/dL Urine Blood (NEGATIVE) Urine Nitrate (NEGATIVE) Urine Bilirubin (NEGATIVE) Urine Urobilinogen (0.2-1.0) mg/dL Ur Leukocyte Esterase (Negative) Francis/uL Urine RBC (Auto) (0-3) /hpf Urine Microscopic WBC (0-5) /hpf Urine Bacteria (<OCC) 07/19/17 Range/Units 11:31 WBC (4.8-10.8) K/uL RBC (4.40-5.90) Mil/uL Hgb (12.0-18.0) g/dL Hct (35.0-51.0) % MCV (80.0-94.0) fl MCH (27.0-31.0) pg MCHC (33.0-37.0) g/dL RDW (11.5-14.5) % Plt Count (130-400) K/uL MPV (7.2-11.7) fl Neut % (Auto) (50.0-75.0) % Lymph % (Auto) (20.0-40.0) % [place] % (Auto) (0.0-10.0) % Eos % (Auto) (0.0-4.0) % Baso % (Auto) (0.0-2.0) % Neut # (1.8-7.0) K/uL Lymph # (1.0-4.3) K/uL [place] # (0.0-0.8) K/uL Eos # (0.0-0.7) K/uL Baso # (0.0-0.2) K/uL Neutrophils % (Manual) (42-75) % Lymphocytes % (Manual) (20-50) % Monocytes % (Manual) (0-10) % Myelocytes % (0-0) % Platelet Estimate (NORMAL) Anisocytosis (manual) pCO2 (35-45) mm/Hg pO2 (80-100) mm/Hg HCO3 (21-28) mmol/L ABG pH (7.35-7.45) ABG Total CO2 (22-28) mmol/L ABG O2 Saturation (95-98) % ABG Base Excess (-2.0-3.0) mmol/L Syed Test ABG Potassium (3.6-5.2) mmol/L A-a O2 Difference mm/Hg Sodium (132-148) mmol/L Chloride (98-107) mmol/L Glucose (75-110) mg/dL Lactate (0.7-2.1) mmol/L FiO2 % Crit Value Called To Crit Value Called By Crit Value Read Back Blood Gas Notified Time Potassium (3.6-5.0) MMOL/L Carbon Dioxide (22-30) mmol/L Anion Gap (10-20) BUN (9-20) mg/dl Creatinine (0.8-1.5) mg/dl Est GFR ( Amer) Est GFR (Non-Af Amer) POC Glucose (mg/dL) > 500 H* (65-110) mg/dL Random Glucose (75-110) mg/dL Calcium (8.4-10.2) mg/dL Total Bilirubin (0.2-1.3) mg/dl AST (17-59) U/L ALT (21-72) U/L Alkaline Phosphatase (38-126) U/L Total Protein (6.3-8.2) G/DL Albumin (3.5-5.0) g/dL Globulin (2.2-3.9) gm/dL Albumin/Globulin Ratio (1.0-2.1) Arterial Blood Potassium (3.6-5.2) mmol/L Urine Color (YELLOW) Urine Clarity (Clear) Urine pH (5.0-8.0) Ur Specific [place] (1.003-1.030) Urine Protein (NEGATIVE) mg/dL Urine Glucose (UA) (Normal) mg/dL Urine Ketones (NEGATIVE) mg/dL Urine Blood (NEGATIVE) Urine Nitrate (NEGATIVE) Urine Bilirubin (NEGATIVE) Urine Urobilinogen (0.2-1.0) mg/dL Ur Leukocyte Esterase (Negative) Francis/uL Urine RBC (Auto) (0-3) /hpf Urine Microscopic WBC (0-5) /hpf Urine Bacteria (<OCC) Laboratory Results - last 24 hr 07/19/17 07/19/17 07/19/17 11:31 11:39 11:47 WBC 15.9 H RBC 5.27 Hgb 15.4 Hct 50.2 MCV 95.2 H MCH 29.2 MCHC 30.7 L RDW 15.0 H Plt Count 363 MPV 11.0 Neut % (Auto) 89.2 H Lymph % (Auto) 4.2 L [place] % (Auto) 6.2 Eos % (Auto) 0.0 Baso % (Auto) 0.4 Neut # 14.2 H Lymph # 0.7 L [place] # 1.0 H Eos # 0.0 Baso # 0.1 Neutrophils % (Manual) 89 H Lymphocytes % (Manual) 4 L Monocytes % (Manual) 6 Myelocytes % 1 H Platelet Estimate Normal Anisocytosis (manual) Slight pCO2 10 L* pO2 106 H HCO3 5.8 L* ABG pH 7.09 L* ABG Total CO2 3.3 L ABG O2 Saturation 100.4 H ABG Base Excess -24.5 L Syed Test Yes ABG Potassium 4.7 A-a O2 Difference 595.0 Sodium 142.0 Chloride 110.0 H Glucose > 750 H* Lactate 3.7 H FiO2 100.0 Crit Value Called To Dr niecy rodarte Crit Value Called By Maxwell Crit Value Read Back Y Blood Gas Notified Time 1157 Potassium Carbon Dioxide Anion Gap BUN Creatinine Est GFR ( Amer) Est GFR (Non-Af Amer) POC Glucose (mg/dL) > 500 H* Random Glucose Calcium Total Bilirubin AST ALT Alkaline Phosphatase Total Protein Albumin Globulin Albumin/Globulin Ratio Arterial Blood Potassium 4.7 Urine Color Urine Clarity Urine pH Ur Specific [place] Urine Protein Urine Glucose (UA) Urine Ketones Urine Blood Urine Nitrate Urine Bilirubin Urine Urobilinogen Ur Leukocyte Esterase Urine RBC (Auto) Urine Microscopic WBC Urine Bacteria 07/19/17 07/19/17 07/19/17 12:29 12:45 13:34 WBC RBC Hgb Hct MCV MCH MCHC RDW Plt Count MPV Neut % (Auto) Lymph % (Auto) [place] % (Auto) Eos % (Auto) Baso % (Auto) Neut # Lymph # [place] # Eos # Baso # Neutrophils % (Manual) Lymphocytes % (Manual) Monocytes % (Manual) Myelocytes % Platelet Estimate Anisocytosis (manual) pCO2 pO2 HCO3 ABG pH ABG Total CO2 ABG O2 Saturation ABG Base Excess Syed Test ABG Potassium A-a O2 Difference Sodium 146 Chloride 111 H Glucose Lactate FiO2 Crit Value Called To Crit Value Called By Crit Value Read Back Blood Gas Notified Time Potassium 6.3 H* Carbon Dioxide < 5 L* Anion Gap 36 H BUN 46 H Creatinine 2.8 H Est GFR ( Amer) 29 Est GFR (Non-Af Amer) 24 POC Glucose (mg/dL) > 500 H* > 500 H* Random Glucose 1022 H* Calcium 9.6 Total Bilirubin 0.5 AST 14 L ALT 21 Alkaline Phosphatase 148 H Total Protein 8.7 H Albumin 4.4 Globulin 4.3 H Albumin/Globulin Ratio 1.0 Arterial Blood Potassium Urine Color Urine Clarity Urine pH Ur Specific [place] Urine Protein Urine Glucose (UA) Urine Ketones Urine Blood Urine Nitrate Urine Bilirubin Urine Urobilinogen Ur Leukocyte Esterase Urine RBC (Auto) Urine Microscopic WBC Urine Bacteria 07/19/17 07/19/17 07/19/17 15:11 15:41 16:04 WBC RBC Hgb Hct MCV MCH MCHC RDW Plt Count MPV Neut % (Auto) Lymph % (Auto) [place] % (Auto) Eos % (Auto) Baso % (Auto) Neut # Lymph # [place] # Eos # Baso # Neutrophils % (Manual) Lymphocytes % (Manual) Monocytes % (Manual) Myelocytes % Platelet Estimate Anisocytosis (manual) pCO2 pO2 HCO3 ABG pH ABG Total CO2 ABG O2 Saturation ABG Base Excess Syed Test ABG Potassium A-a O2 Difference Sodium 152 H Chloride 118 H Glucose Lactate FiO2 Crit Value Called To Crit Value Called By Crit Value Read Back Blood Gas Notified Time Potassium 5.2 H Carbon Dioxide < 5 L* Anion Gap 34 H BUN 44 H Creatinine 2.1 H Est GFR ( Amer) 41 Est GFR (Non-Af Amer) 34 POC Glucose (mg/dL) > 500 H* > 500 H* Random Glucose 717 H* D Calcium 9.5 Total Bilirubin 0.3 AST 11 L D ALT 19 L Alkaline Phosphatase 147 H Total Protein 8.8 H Albumin 4.4 Globulin 4.4 H Albumin/Globulin Ratio 1.0 Arterial Blood Potassium Urine Color Urine Clarity Urine pH Ur Specific [place] Urine Protein Urine Glucose (UA) Urine Ketones Urine Blood Urine Nitrate Urine Bilirubin Urine Urobilinogen Ur Leukocyte Esterase Urine RBC (Auto) Urine Microscopic WBC Urine Bacteria 07/19/17 07/19/17 07/19/17 17:14 17:56 19:00 WBC RBC Hgb Hct MCV MCH MCHC RDW Plt Count MPV Neut % (Auto) Lymph % (Auto) [place] % (Auto) Eos % (Auto) Baso % (Auto) Neut # Lymph # [place] # Eos # Baso # Neutrophils % (Manual) Lymphocytes % (Manual) Monocytes % (Manual) Myelocytes % Platelet Estimate Anisocytosis (manual) pCO2 pO2 HCO3 ABG pH ABG Total CO2 ABG O2 Saturation ABG Base Excess Syed Test ABG Potassium A-a O2 Difference Sodium Chloride Glucose Lactate FiO2 Crit Value Called To Crit Value Called By Crit Value Read Back Blood Gas Notified Time Potassium Carbon Dioxide Anion Gap BUN Creatinine Est GFR ( Amer) Est GFR (Non-Af Amer) POC Glucose (mg/dL) 477 H* 409 H* Random Glucose Calcium Total Bilirubin AST ALT Alkaline Phosphatase Total Protein Albumin Globulin Albumin/Globulin Ratio Arterial Blood Potassium Urine Color Straw Urine Clarity Clear Urine pH 5.0 Ur Specific [place] 1.024 Urine Protein Negative Urine Glucose (UA) >=500 Urine Ketones 80 Urine Blood Moderate Urine Nitrate Negative Urine Bilirubin Negative Urine Urobilinogen 0.2-1.0 Ur Leukocyte Esterase Neg Urine RBC (Auto) 1 Urine Microscopic WBC < 1 Urine Bacteria Rare 07/19/17 07/19/17 07/19/17 19:03 20:00 20:09 WBC RBC Hgb Hct MCV MCH MCHC RDW Plt Count MPV Neut % (Auto) Lymph % (Auto) [place] % (Auto) Eos % (Auto) Baso % (Auto) Neut # Lymph # [place] # Eos # Baso # Neutrophils % (Manual) Lymphocytes % (Manual) Monocytes % (Manual) Myelocytes % Platelet Estimate Anisocytosis (manual) pCO2 pO2 HCO3 ABG pH ABG Total CO2 ABG O2 Saturation ABG Base Excess Syed Test ABG Potassium A-a O2 Difference Sodium 158 H Chloride 126 H Glucose Lactate FiO2 Crit Value Called To Crit Value Called By Crit Value Read Back Blood Gas Notified Time Potassium 4.9 Carbon Dioxide 11 L* D Anion Gap 26 H BUN 40 H Creatinine 1.6 H Est GFR ( Amer) 56 Est GFR (Non-Af Amer) 46 POC Glucose (mg/dL) 392 H 403 H* Random Glucose 373 H Calcium 9.7 Total Bilirubin 0.4 AST 14 L D ALT 26 Alkaline Phosphatase 139 H Total Protein 9.0 H Albumin 4.4 Globulin 4.6 H Albumin/Globulin Ratio 1.0 Arterial Blood Potassium Urine Color Urine Clarity Urine pH Ur Specific [place] Urine Protein Urine Glucose (UA) Urine Ketones Urine Blood Urine Nitrate Urine Bilirubin Urine Urobilinogen Ur Leukocyte Esterase Urine RBC (Auto) Urine Microscopic WBC Urine Bacteria 07/19/17 07/19/17 07/20/17 22:11 22:58 00:35 WBC RBC Hgb Hct MCV MCH MCHC RDW Plt Count MPV Neut % (Auto) Lymph % (Auto) [place] % (Auto) Eos % (Auto) Baso % (Auto) Neut # Lymph # [place] # Eos # Baso # Neutrophils % (Manual) Lymphocytes % (Manual) Monocytes % (Manual) Myelocytes % Platelet Estimate Anisocytosis (manual) pCO2 pO2 HCO3 ABG pH ABG Total CO2 ABG O2 Saturation ABG Base Excess Syed Test ABG Potassium A-a O2 Difference Sodium Chloride Glucose Lactate FiO2 Crit Value Called To Crit Value Called By Crit Value Read Back Blood Gas Notified Time Potassium Carbon Dioxide Anion Gap BUN Creatinine Est GFR ( Amer) Est GFR (Non-Af Amer) POC Glucose (mg/dL) 318 H 269 H 258 H Random Glucose Calcium Total Bilirubin AST ALT Alkaline Phosphatase Total Protein Albumin Globulin Albumin/Globulin Ratio Arterial Blood Potassium Urine Color Urine Clarity Urine pH Ur Specific [place] Urine Protein Urine Glucose (UA) Urine Ketones Urine Blood Urine Nitrate Urine Bilirubin Urine Urobilinogen Ur Leukocyte Esterase Urine RBC (Auto) Urine Microscopic WBC Urine Bacteria 07/20/17 07/20/17 07/20/17 01:57 02:41 03:45 WBC RBC Hgb Hct MCV MCH MCHC RDW Plt Count MPV Neut % (Auto) Lymph % (Auto) [place] % (Auto) Eos % (Auto) Baso % (Auto) Neut # Lymph # [place] # Eos # Baso # Neutrophils % (Manual) Lymphocytes % (Manual) Monocytes % (Manual) Myelocytes % Platelet Estimate Anisocytosis (manual) pCO2 pO2 HCO3 ABG pH ABG Total CO2 ABG O2 Saturation ABG Base Excess Syed Test ABG Potassium A-a O2 Difference Sodium Chloride Glucose Lactate FiO2 Crit Value Called To Crit Value Called By Crit Value Read Back Blood Gas Notified Time Potassium Carbon Dioxide Anion Gap BUN Creatinine Est GFR ( Amer) Est GFR (Non-Af Amer) POC Glucose (mg/dL) 251 H 252 H 290 H Random Glucose Calcium Total Bilirubin AST ALT Alkaline Phosphatase Total Protein Albumin Globulin Albumin/Globulin Ratio Arterial Blood Potassium Urine Color Urine Clarity Urine pH Ur Specific [place] Urine Protein Urine Glucose (UA) Urine Ketones Urine Blood Urine Nitrate Urine Bilirubin Urine Urobilinogen Ur Leukocyte Esterase Urine RBC (Auto) Urine Microscopic WBC Urine Bacteria 07/20/17 07/20/17 07/20/17 04:43 05:30 06:18 WBC RBC Hgb Hct MCV MCH MCHC RDW Plt Count MPV Neut % (Auto) Lymph % (Auto) [place] % (Auto) Eos % (Auto) Baso % (Auto) Neut # Lymph # [place] # Eos # Baso # Neutrophils % (Manual) Lymphocytes % (Manual) Monocytes % (Manual) Myelocytes % Platelet Estimate Anisocytosis (manual) pCO2 pO2 HCO3 ABG pH ABG Total CO2 ABG O2 Saturation ABG Base Excess Syed Test ABG Potassium A-a O2 Difference Sodium 165 H* Chloride 132 H Glucose Lactate FiO2 Crit Value Called To Crit Value Called By Crit Value Read Back Blood Gas Notified Time Potassium 4.6 Carbon Dioxide 16 L Anion Gap 22 H BUN 33 H Creatinine 1.4 Est GFR ( Amer) > 60 Est GFR (Non-Af Amer) 54 POC Glucose (mg/dL) 172 H 212 H Random Glucose 187 H Calcium 9.8 Total Bilirubin 0.3 AST 19 ALT 23 Alkaline Phosphatase 121 Total Protein 8.4 H Albumin 4.1 Globulin 4.3 H Albumin/Globulin Ratio 1.0 Arterial Blood Potassium Urine Color Urine Clarity Urine pH Ur Specific [place] Urine Protein Urine Glucose (UA) Urine Ketones Urine Blood Urine Nitrate Urine Bilirubin Urine Urobilinogen Ur Leukocyte Esterase Urine RBC (Auto) Urine Microscopic WBC Urine Bacteria 07/20/17 07:25 WBC RBC Hgb Hct MCV MCH MCHC RDW Plt Count MPV Neut % (Auto) Lymph % (Auto) [place] % (Auto) Eos % (Auto) Baso % (Auto) Neut # Lymph # [place] # Eos # Baso # Neutrophils % (Manual) Lymphocytes % (Manual) Monocytes % (Manual) Myelocytes % Platelet Estimate Anisocytosis (manual) pCO2 pO2 HCO3 ABG pH ABG Total CO2 ABG O2 Saturation ABG Base Excess Syed Test ABG Potassium A-a O2 Difference Sodium Chloride Glucose Lactate FiO2 Crit Value Called To Crit Value Called By Crit Value Read Back Blood Gas Notified Time Potassium Carbon Dioxide Anion Gap BUN Creatinine Est GFR ( Amer) Est GFR (Non-Af Amer) POC Glucose (mg/dL) 190 H Random Glucose Calcium Total Bilirubin AST ALT Alkaline Phosphatase Total Protein Albumin Globulin Albumin/Globulin Ratio Arterial Blood Potassium Urine Color Urine Clarity Urine pH Ur Specific [place] Urine Protein Urine Glucose (UA) Urine Ketones Urine Blood Urine Nitrate Urine Bilirubin Urine Urobilinogen Ur Leukocyte Esterase Urine RBC (Auto) Urine Microscopic WBC Urine Bacteria EKG/Cardiology Studies: Cardiology / EKG Studies 07/19/17 11:33 ELECTROCARDIOGRAM Stat Comment: Mode Of Transportation: Reason For Exam: DKA 07/19/17 13:58 ELECTROCARDIOGRAM Stat Comment: Mode Of Transportation: Reason For Exam: DKA Fingerstick Blood Sugar Results: 258 Assessment/Plan - Assessment and Plan (Free Text) Assessment: A/P DKA, hyperglycemia, newly diagnosed DM, h/o asthma, allergies, dehydration - IV fluid - IV insulin - Follow up electrolyte - Continue DKA insulin protocol critical care 35 min
[2017-07-20] MEDS: Enoxaparin 30 mg Syringe SC SCH (09:47)
[2017-07-20] MEDS: Dextrose 5%/0.45% NS 1,000 ML IV SCH ×2 (12:00→18:36)
[2017-07-20 12:26] LABS: BLOOD UREA NITROGEN 30 mg/dl (9-20); CALCIUM 9.4 mg/dL (8.4-10.2); CARBON DIOXIDE 17 mmol/L (22-30); CHLORIDE 127 mmol/L (98-107); GFR AFRICAN-AMERICAN > 60; GLUCOSE,RANDOM 278 mg/dL (75-110); POTASSIUM 4.1 MMOL/L (3.6-5.0); SODIUM 159 mmol/l (132-148)
--- NOTE | 2017-07-20 14:18 | CARD ---
APPROVED REPORT EKG Measurement Heart [id number] <Conclusion> Sinus tachycardia Left axis deviation Low voltage QRS Cannot rule out Anterior infarct, age undetermined Abnormal ECG
[2017-07-20 16:55] LABS: BLOOD UREA NITROGEN 28 mg/dl (9-20); CALCIUM 8.8 mg/dL (8.4-10.2); CARBON DIOXIDE 17 mmol/L (22-30); CHLORIDE 124 mmol/L (98-107); GFR AFRICAN-AMERICAN > 60; GLUCOSE,RANDOM 317 mg/dL (75-110); POTASSIUM 4.2 MMOL/L (3.6-5.0); SODIUM 154 mmol/l (132-148)
[2017-07-20 21:00] LABS: BLOOD UREA NITROGEN 24 mg/dl (9-20); CALCIUM 8.6 mg/dL (8.4-10.2); CARBON DIOXIDE 19 mmol/L (22-30); CHLORIDE 122 mmol/L (98-107); GFR AFRICAN-AMERICAN > 60; GLUCOSE,RANDOM 297 mg/dL (75-110); POTASSIUM 3.9 MMOL/L (3.6-5.0); SODIUM 150 mmol/l (132-148)
--- NOTE | 2017-07-20 23:51 | CP.PCM.PN ---
Subjective - Date & Time of Evaluation Date of Evaluation: 07/20/17 Time of Evaluation: 10:00 - Subjective Subjective: Seen and examined at the bed side. Awake but +Lethargy. On Regular Insulin Infusion. Patient Irritable and unable to have a normal conversation about his problem. Objective - Vital Signs/Intake and Output Vital Signs (last 24 hours): Temp Pulse Resp BP Pulse Ox 98.5 F 103 H 16 141/78 100 07/20/17 20:00 07/20/17 22:00 07/20/17 22:00 07/20/17 22:00 07/20/17 22:00 Intake and Output: 07/20/17 07/21/17 18:59 06:59 Intake Total 1930 24 Output Total 1000 Balance 930 24 - Medications Medications: Current Medications Dextrose (Dextrose 50% Inj) 0 ml IV STAT PRN; Protocol PRN Reason: Hypoglycemia Protocol Dextrose (Glutose 15) 0 gm PO ONCE PRN; Protocol PRN Reason: Hypoglycemia Protocol Dextrose (Dextrose 50% Inj) 0 ml IV STAT PRN; Protocol PRN Reason: Hypoglycemia Protocol Dextrose (Glutose 15) 0 gm PO ONCE PRN; Protocol PRN Reason: Hypoglycemia Protocol Enoxaparin Sodium (Lovenox) 30 mg SC DAILY [facility] PRN Reason: Protocol Last Admin: 07/20/17 09:47 Dose: 30 mg Glucagon (Glucagen Diagnostic Kit) 0 mg IM STAT PRN; Protocol PRN Reason: Hypoglycemia Protocol Glucagon (Glucagen Diagnostic Kit) 0 mg IM STAT PRN; Protocol PRN Reason: Hypoglycemia Protocol Insulin Human Regular 100 (units/ Sodium Chloride) 101 mls @ 6.06 mls/hr IV .[id number] [facility]; 6 UNITS/HR PRN Reason: Protocol Last Titration: 07/20/17 23:42 Dose: 4 units/hr, 4.04 mls/hr Dextrose/Sodium Chloride (Dextrose 5%/0.45% Ns 1000 Ml) 1,000 mls @ 150 mls/hr IV .Q6H40M [facility] Stop: 07/21/17 11:50 Last Admin: 07/20/17 18:36 Dose: 150 mls/hr - Labs Labs: 07/19/17 11:39 07/20/17 20:43 - Constitutional Appears: Well, No Acute Distress - Head Exam Head Exam: ATRAUMATIC, NORMAL INSPECTION, NORMOCEPHALIC - Eye Exam Eye Exam: EOMI, Normal appearance, PERRL Pupil Exam: NORMAL ACCOMODATION, PERRL - ENT Exam ENT Exam: Mucous Membranes Moist, Normal Exam - Neck Exam Neck Exam: Full ROM, Normal Inspection. absent: Lymphadenopathy - Respiratory Exam Respiratory Exam: Clear to Ausculation Bilateral, NORMAL BREATHING PATTERN - Cardiovascular Exam Cardiovascular Exam: REGULAR RHYTHM, +S1, +S2. absent: Murmur - GI/Abdominal Exam GI & Abdominal Exam: Soft, Normal Bowel Sounds. absent: Tenderness - Extremities Exam Extremities Exam: Normal Capillary Refill, Normal Inspection. absent: Joint Swelling, Pedal Edema - Back Exam Back Exam: NORMAL INSPECTION. absent: CVA tenderness (L), CVA tenderness (R) - Neurological Exam Neurological Exam: Abnormal Gait, Altered, Awake, CN II-XII Intact - Psychiatric Exam Psychiatric exam: Flat Affect - Skin Skin Exam: Dry, Intact, Normal Color, Warm Assessment and Plan (1) DKA (diabetic ketoacidosis) Assessment & Plan: Altered Mental Status-Improving [place] Breathing-Resolved Non-compliant To Medication, Continue to Monitor in ICU NPO IVF Regular Insulin Infusion Monitor BMP, Mag and Phos Level q4hrs Endo consult Status: Acute Priority: High (2) DVT prophylaxis Status: Acute Priority: Medium Status: Acute
[2017-07-21] MEDS: Dextrose 5%/0.45% NS 1,000 ML IV SCH ×2 (01:16→08:20)
[2017-07-21 05:38] LABS: BLOOD UREA NITROGEN 18 mg/dl (9-20); CALCIUM 8.4 mg/dL (8.4-10.2); CARBON DIOXIDE 20 mmol/L (22-30); CHLORIDE 122 mmol/L (98-107); GFR AFRICAN-AMERICAN > 60; GLUCOSE,RANDOM 265 mg/dL (75-110); POTASSIUM 3.3 MMOL/L (3.6-5.0); SODIUM 150 mmol/l (132-148)
[2017-07-21] MEDS ORDERED: Potassium Chloride 20 mEq ER Tab PO ONE (08:36)
[2017-07-21 08:45] LABS: HEMATOCRIT 37.3 % (35.0-51.0); MEAN CORPUSCULAR HEMOGLOBIN 28.9 pg (27.0-31.0); MEAN CORPUSCULAR HGB CONC 33.9 g/dL (33.0-37.0); RED CELL DISTRIBUTION WIDTH 13.4 % (11.5-14.5); WHITE BLOOD COUNT 11.5 K/uL (4.8-10.8)
[2017-07-21 08:48] LABS: MEAN CELL VOLUME 85.4 fl (80.0-94.0)
[2017-07-21] MEDS: Enoxaparin 30 mg Syringe SC SCH (09:11)
[2017-07-21 09:51] LABS: MAGNESIUM 2.5 MG/DL (1.6-2.3); PHOSPHOROUS 1.6 mg/dl (2.5-4.5)
[2017-07-21 11:03] LABS: THYROID STIMULATING HORMONE 1.16 mIU/ML (0.46-4.68)
[2017-07-21] MEDS: Insulin Regular 100 units/ml SC SCH ×2 (11:47→17:00)
[2017-07-21 11:58] LABS: AMYLASE 114 U/L (30-110); LIPASE 320 U/L (23-300)
[2017-07-21] MEDS ORDERED: Potassium Chloride 20 MEQ in Sodium Chloride 0.45% 1,000 ML IV SCH (15:30)
[2017-07-21] MEDS ORDERED: Insulin Regular 100 units/ml SC STA (17:00)
--- NOTE | 2017-07-21 17:10 | PN ---
CRITICAL CARE PROGRESS NOTE DATE: 07/21/2017 LOCATION: The patient in ICU, bed 434. TIME SPENT: 35 minutes. SUBJECTIVE: The patient is seen and evaluated at the bedside. Events since admission reviewed. Past medical, surgical and social history noted. A 52-year-old male with history of asthma, allergic rhinitis, recently diagnosed diabetes mellitus type 2, on metformin; noncompliant with medications, admitted with DKA, on insulin drip and IV fluid. PHYSICAL EXAMINATION GENERAL: This morning, alert, awake, follows commands appropriate. Has no headache, shortness of breath, chest pain, palpitation. No abdominal discomfort, no diarrhea. VITAL SIGNS: Temperature 98.1, heart rate 88, respiratory rate 16, blood pressure 131/75 to 168/91. Intake 4814 and output 1800, positive balance 3014. Weight 260 pounds. HEAD, EYES, EARS, NOSE AND THROAT: Pupils are reactive. Conjunctivae pink. Sclerae white. NECK: Supple, short. Reduced oropharyngeal air space. CHEST: Bilateral breath sounds. Clear to auscultation. HEART: Rhythm regular. S1 and S2 normal intensity. No S3, S4, or gallop. No audible murmur. ABDOMEN: Bowel sounds present, soft. Liver and spleen not palpable. Bladder not distended. EXTREMITIES: No clubbing, cyanosis, or edema. NEUROLOGIC: Nonfocal. CURRENT MEDICATIONS: Include Lovenox 30 subcu daily, Levemir 12 units subcu daily, Accu-Chek with regular insulin coverage a.c. and at bedtime, Neutra-Phos 250 mg p.o. daily. CURRENT LABORATORY DATA: WBC 11.5, hemoglobin 12.6, hematocrit 37.3, platelet count 198. SMA-7: Sodium 150, potassium 3.3, chloride 122, CO2 of 20, blood urea nitrogen 18, creatinine of 1, random glucose 288 to 350, calcium 8.4, phosphorous 1.6, magnesium 2.5, amylase of 114, lipase 320, TSH of 1.6. IMPRESSION: Status post diabetic ketoacidosis, insulin drip weaned off, started on basal and bolus insulin. Continue IV fluid. Follow up on the blood sugar and anion gap. Add metformin when the patient is able to tolerate. Follow up lipase. History of asthma, currently stable. May be transferred to regular floor. Anjel Brice MD
[2017-07-21] MEDS: Potassium Chloride 20 MEQ in Sodium Chloride 0.45% 1,000 ML IV SCH (20:00)
--- NOTE | 2017-07-21 20:53 | CP.PCM.PN ---
Subjective - Date & Time of Evaluation Date of Evaluation: 07/21/17 Time of Evaluation: 18:25 - Subjective Subjective: Seen and examined at the bed side. Patient is gradually improving and may d/c RI infusion as the acidemia has subsided and AG has normalized and Bicarb 20 today. Hypernatremia has improved to 150 today from Max of 165. No other complaint. Objective - Vital Signs/Intake and Output Vital Signs (last 24 hours): Temp Pulse Resp BP Pulse Ox 98.9 F 92 H 98 H 120/69 16 L 07/21/17 16:00 07/21/17 16:00 07/21/17 16:00 07/21/17 16:00 07/21/17 16:00 Intake and Output: 07/21/17 07/22/17 18:59 06:59 Intake Total 3636 Output Total 1460 Balance 2176 - Medications Medications: Current Medications Dextrose (Dextrose 50% Inj) 0 ml IV STAT PRN; Protocol PRN Reason: Hypoglycemia Protocol Dextrose (Glutose 15) 0 gm PO ONCE PRN; Protocol PRN Reason: Hypoglycemia Protocol Enoxaparin Sodium (Lovenox) 30 mg SC DAILY [facility] PRN Reason: Protocol Last Admin: 07/21/17 09:11 Dose: 30 mg Glucagon (Glucagen Diagnostic Kit) 0 mg IM STAT PRN; Protocol PRN Reason: Hypoglycemia Protocol Potassium Chloride 20 meq/ (Sodium Chloride) 1,010 mls @ 125 mls/hr IV .Q8H5M [facility] Stop: 07/22/17 18:06 Insulin Detemir (Levemir) 30 units SC HS [facility] Insulin Human Lispro (Humalog) 14 units SC TIDAC [facility] Insulin Human Lispro (Humalog) 0 units SC ACHS [facility] PRN Reason: Protocol Sodium Phosphate (Potassium/Sodium Phosphate) 250 mg PO DAILY [facility] Last Admin: 07/21/17 17:11 Dose: 250 mg - Labs Labs: 07/21/17 08:20 07/21/17 04:20 - Constitutional Appears: Well, No Acute Distress - Head Exam Head Exam: ATRAUMATIC, NORMAL INSPECTION, NORMOCEPHALIC - Eye Exam Eye Exam: EOMI, Normal appearance, PERRL Pupil Exam: NORMAL ACCOMODATION, PERRL - ENT Exam ENT Exam: Mucous Membranes Moist, Normal Exam - Neck Exam Neck Exam: Full ROM, Normal Inspection. absent: Lymphadenopathy - Respiratory Exam Respiratory Exam: Clear to Ausculation Bilateral, NORMAL BREATHING PATTERN - Cardiovascular Exam Cardiovascular Exam: REGULAR RHYTHM, +S1, +S2. absent: Murmur - GI/Abdominal Exam GI & Abdominal Exam: Soft, Normal Bowel Sounds. absent: Tenderness - Extremities Exam Extremities Exam: Full ROM, Normal Capillary Refill, Normal Inspection. absent : Joint Swelling, Pedal Edema - Back Exam Back Exam: NORMAL INSPECTION - Neurological Exam Neurological Exam: Alert, Awake, CN II-XII Intact, Normal Gait, Oriented x3 - Psychiatric Exam Psychiatric exam: Normal Affect, Normal Mood - Skin Skin Exam: Dry, Intact, Normal Color, Warm Assessment and Plan (1) DKA (diabetic ketoacidosis) Assessment & Plan: Hypernatremia- 165->>>150 today Altered Mental Status-Improved [place]ussmaul Breathing-Resolved Non-compliant To Medication, Continue to Monitor in ICU IVF 0.45 Regular Insulin Infusion Endo consulted Status: Acute Priority: High (2) DVT prophylaxis Status: Acute
[2017-07-21] MEDS: Insulin Lispro (humaLOG) 100 Units/ml Inj SC SCH (21:58)
[2017-07-21] MEDS ORDERED: Insulin Detemir 100 Units/ml Inj SC SCH ×2 (22:00)
--- NOTE | 2017-07-22 02:41 | CON ---
DATE: ENDOCRINOLOGY CONSULTATION LOCATION: Room 434, ICU. HISTORY OF PRESENT ILLNESS: This is a 52-year-old male with known history of type 2 diabetes diagnosed about a month ago and placed on metformin therapy, which he eventually discontinued, and presents here actually unresponsive with marked hyperglycemic accelerations and severe diabetic ketoacidosis and is now being referred for diabetic evaluation 48 hours after admission and just taken off the insulin drip infusion today as noted. PAST MEDICAL HISTORY: As mentioned above, history of type 2 diabetes, previously given metformin medication which he discontinued because of apparent metallic taste of the medication thereof; history of hypertension and dyslipidemia, not on any medications; history of chronic seasonal allergies as noted. FAMILY HISTORY: Positive for diabetes and hypertension. SOCIAL HISTORY: The patient admits to chronic alcoholism. No other known substance use. REVIEW OF SYSTEMS: As mentioned above, admits to generalized body weakness with progressively worsening episodes of dizziness and lightheadedness, worse on the day of admission where he was apparently found unresponsive by the family prompting this admission. The exact details are not known at this time. Also, admits to bifrontal headaches and visual blurring with easy fatigability and tiredness and suboptimal energy level. No chest pains or palpitations or PND. His oral intake has been variable with nausea, dyspepsia, and vague upper abdominal pains. Also, admits to marked polyuria, nocturia, polydipsia lasting a month, but worse in the last few days prior to admission. PHYSICAL EXAMINATION: GENERAL: This is an obese, in no apparent distress. VITAL SIGNS: Blood pressure of 150/90, pulse of 100 beats per minute and regular, temperature 98, respirations 20, height is 5 feet 5 inches, weight is 260 pounds. HEENT: Head normocephalic. Eyes anicteric with pink conjunctivae. Funduscopy not possible at this time. Ears, nose, and throat otherwise normal. NECK: Supple. Thyroid gland is normal in size. No carotid bruits or any cervical adenopathy. CARDIOPULMONARY: Some adynamic precordium. S1, S2 is rapid and regular. LUNGS: Clear to auscultation. ABDOMEN: Obese, soft with positive bowel sounds. EXTREMITIES: No peripheral edema. Pulses are +2 bilaterally. LABORATORY DATA: The glucose levels today range from 352-459 mg/dL. The latest CO2 is 20 with serum sodium of 150. The initial chemistries on admission showed a BUN of 46, sodium 146, potassium 6.3, chloride 111, CO2 was less than 5, glucose was 1022, and creatinine of 2.8. His phosphorus is 1.6, magnesium is 2.5. Lipase is 320. ASSESSMENT: This is a 52-year-old male with uncontrolled and decompensated type 2 insulin-requiring diabetes, presented here with severe diabetic ketoacidosis and dehydration with marked hypernatremia with prerenal azotemia as noted thereof. Apparently, he was on insulin drip for 48 hours since admission and continues to have hypernatremia and mild metabolic acidosis as noted thereof. There is also underlying morbid obesity, which as we know could contribute to the increased insulin resistance and further impaired glucose tolerance thereof. With a significant history of chronic alcoholism, we may also be dealing with the so-called secondary diabetes with rapid deterioration of his metabolic function and may clearly be insulin requiring at this time. PLAN OF MANAGEMENT: As discussed with the patient and staff, we will switch him right away to more physiologic basal and bolus insulin regimen with Levemir to be started at 30 units subcu at bedtime daily to start tonight. We will add Humalog given as 14 units subcu t.i.d. before meals as ordered. We will modify the coverage scale to obviate hypoglycemia and detailed orders have been given. We will initiate diet education and dietary instructions to include insulin self-administration as he clearly will be going home on insulin therapy. With a severe metabolic acidosis and insulin depletion at this time, we cannot really initiate oral hypoglycemic therapy for now. We will obtain a hemoglobin A1c to confirm his glycemic control and baseline thyroid function studies and lipid panel will be ordered. We will also obtain a serum C-peptide to assess but clearly his biochemical and clinical scenario has proven that he clearly is insulin requiring at this time and possibly even insulin dependent with a chronic alcoholism history as noted. We will titrate his insulin dose regimen to optimize metabolic control. We will also request our diabetic nurse educator, Ms. Janel Soler to initiate diet education and insulin self-administration techniques thereof. We will continue the vigorous IV hydration and increase the normal saline to 125 mL/hour with KCl supplementation as given. We will obtain serial chemistries and supplement accordingly as needed. We will follow. Bella Sykes MD [facility] # [id number]
[2017-07-22] MEDS: Potassium Chloride 20 MEQ in Sodium Chloride 0.45% 1,000 ML IV SCH ×2 (04:48→12:52)
[2017-07-22 06:00] LABS: ALB/GLOB RATIO 0.9 (1.0-2.1); ALKALINE PHOSPHATASE 107 U/L (38-126); ALT/SGPT 34 U/L (21-72); AST/SGOT 17 U/L (17-59); BILIRUBIN,TOTAL 0.3 mg/dl (0.2-1.3); BLOOD UREA NITROGEN 14 mg/dl (9-20); CALCIUM 8.5 mg/dL (8.4-10.2); CARBON DIOXIDE 22 mmol/L (22-30); CHLORIDE 115 mmol/L (98-107); CHOLESTEROL 160 mg/dL (0-199); GFR AFRICAN-AMERICAN > 60; GLUCOSE,RANDOM 287 mg/dL (75-110); SODIUM 145 mmol/l (132-148); TOTAL PROTEIN 6.7 G/DL (6.3-8.2)
[2017-07-22 06:26] LABS: THYROID STIMULATING HORMONE 3.13 mIU/ML (0.46-4.68)
[2017-07-22] MEDS: Insulin Lispro (humaLOG) 100 Units/ml Inj SC SCH ×7 (06:38→21:58)
[2017-07-22] MEDS: Enoxaparin 30 mg Syringe SC SCH (09:03)
[2017-07-22] MEDS ORDERED: Insulin Detemir 100 Units/ml Inj SC SCH (22:00)
--- NOTE | 2017-07-22 23:55 | CP.PCM.PN ---
Subjective - Date & Time of Evaluation Date of Evaluation: 07/22/17 Time of Evaluation: 18:30 - Subjective Subjective: Seen and examined at the bed side. Patient states feeling better and today more aware of what happened to him, and I have educated the patient about the short term and termite treater helper complications, and Risks of Hypoglycemia as adverse effect from the medications, and educated him Sx/Sx. Patient stated on Total Insulin dose of 106mg of Long acting and Short Acting with Low coverage. Patient received Diabetic Education. Objective - Vital Signs/Intake and Output Vital Signs (last 24 hours): Temp Pulse Resp BP Pulse Ox 98.6 F 91 H 18 114/76 100 07/22/17 16:20 07/22/17 16:20 07/22/17 16:20 07/22/17 16:20 07/22/17 16:20 Intake and Output: 07/22/17 07/23/17 18:59 06:59 Intake Total 120 Output Total 300 Balance -180 - Medications Medications: Current Medications Dextrose (Dextrose 50% Inj) 0 ml IV STAT PRN; Protocol PRN Reason: Hypoglycemia Protocol Dextrose (Glutose 15) 0 gm PO ONCE PRN; Protocol PRN Reason: Hypoglycemia Protocol Enoxaparin Sodium (Lovenox) 30 mg SC DAILY [facility] PRN Reason: Protocol Last Admin: 07/22/17 09:03 Dose: 30 mg Glucagon (Glucagen Diagnostic Kit) 0 mg IM STAT PRN; Protocol PRN Reason: Hypoglycemia Protocol Insulin Detemir (Levemir) 44 units SC HS [facility] Last Admin: 07/22/17 21:56 Dose: 44 u Insulin Human Lispro (Humalog) 0 units SC ACHS [facility] PRN Reason: Protocol Last Admin: 07/22/17 21:58 Dose: Not Given Insulin Human Lispro (Humalog) 20 units SC TIDAC [facility] Last Admin: 07/22/17 16:56 Dose: 20 units Sodium Phosphate (Potassium/Sodium Phosphate) 250 mg PO DAILY [facility] Last Admin: 07/22/17 09:03 Dose: 250 mg - Labs Labs: 07/21/17 08:20 07/22/17 04:20 - Constitutional Appears: Well, No Acute Distress - Head Exam Head Exam: ATRAUMATIC, NORMAL INSPECTION, NORMOCEPHALIC - Eye Exam Eye Exam: EOMI, Normal appearance, PERRL Pupil Exam: NORMAL ACCOMODATION, PERRL - ENT Exam ENT Exam: Mucous Membranes Moist, Normal Exam - Neck Exam Neck Exam: Full ROM, Normal Inspection. absent: Lymphadenopathy - Respiratory Exam Respiratory Exam: Clear to Ausculation Bilateral, NORMAL BREATHING PATTERN - Cardiovascular Exam Cardiovascular Exam: REGULAR RHYTHM, +S1, +S2. absent: Murmur - GI/Abdominal Exam GI & Abdominal Exam: Soft, Normal Bowel Sounds. absent: Tenderness - Extremities Exam Extremities Exam: Full ROM, Normal Capillary Refill, Normal Inspection. absent : Joint Swelling, Pedal Edema - Back Exam Back Exam: NORMAL INSPECTION - Neurological Exam Neurological Exam: Abnormal Gait, Awake, CN II-XII Intact, Oriented x3 - Psychiatric Exam Psychiatric exam: Normal Affect, Normal Mood - Skin Skin Exam: Dry, Intact, Normal Color, Warm Assessment and Plan (1) DKA (diabetic ketoacidosis) Assessment & Plan: Altered Mental Status- Resolved Kussmaul Breathing-Resolved Non-compliant To Medication- Educated by me, and Talent Program Manager; HgA1C 14.3 Transfer to [facility] Heart Healthy Diabetic Diet- Educated by A dietitian IVF D/C Regular Insulin Infusion Continue Levemir, Pre-Meal Humalog TID and Accu-check with Low Coverage Monitor BMP, Mag and Phos Level q4hrs Endo onboard Status: Acute (2) DVT prophylaxis Status: Acute Priority: Medium Status: Acute
--- NOTE | 2017-07-23 01:50 | PN ---
DATE: ENDOCRINOLOGY FOLLOWUP NOTE LOCATION: Room 652. SUBJECTIVE: This is a 52-year-old with known recent uncontrolled type 2 insulin-requiring diabetes, presenting here with severe diabetic ketoacidosis and dehydration and has since then improved clinically and metabolically as noted thereof. However, he continues to have glycemic fluctuations as noted overnight and glucose levels have ranged from 255 to 323 mg/dL. It was 426 at bedtime last night. The latest chemistry showed a BUN of 14, sodium 145, potassium 4.0, chloride 115, CO2 of 22, glucose 287, and creatinine 0.9. His hemoglobin A1c is 14.3%. So, at this time, we will modify once again his basal and bolus insulin regimen and increase the Humalog to 20 units subcu t.i.d. before meals to start today as ordered. We will also increase the Levemir to 44 units subcu at bedtime daily to start tonight. We will titrate incrementally as indicated to optimize metabolic control. He also underwent diabetic dictation and dietary instructions at the time of this admission and Ms. Janel Soler, our diabetic nurse educator, came in today to teach the patient insulin self-administration with the use of insulin pens as noted. We will follow this. Bella Sykes MD
[2017-07-23 09:18] LABS: ALB/GLOB RATIO 0.9 (1.0-2.1); ALKALINE PHOSPHATASE 95 U/L (38-126); ALT/SGPT 34 U/L (21-72); AST/SGOT 20 U/L (17-59); BILIRUBIN,TOTAL 0.7 mg/dl (0.2-1.3); BLOOD UREA NITROGEN 13 mg/dl (9-20); CALCIUM 8.4 mg/dL (8.4-10.2); CARBON DIOXIDE 27 mmol/L (22-30); CHLORIDE 110 mmol/L (98-107); GFR AFRICAN-AMERICAN > 60; GLUCOSE,RANDOM 222 mg/dL (75-110); POTASSIUM 3.8 MMOL/L (3.6-5.0); SODIUM 143 mmol/l (132-148); TOTAL PROTEIN 6.3 G/DL (6.3-8.2)
[2017-07-23] MEDS: Insulin Lispro (humaLOG) 100 Units/ml Inj SC SCH ×7 (09:50→21:44)
[2017-07-23] MEDS: Enoxaparin 30 mg Syringe SC SCH (09:52)
--- NOTE | 2017-07-23 13:01 | PN ---
DATE: ENDOCRINOLOGY FOLLOWUP NOTE LOCATION: Room 652. SUBJECTIVE: This is a 52-year-old male with recent uncontrolled type 2 insulin-requiring diabetes, presenting here with diabetic ketoacidosis and dehydration and has since then improved clinically and metabolically as noted thereof. However, his glucose values are still fluctuating and today's glucose levels have ranged from 241-325 mg/dL. The latest chemistry showed a BUN of 13, sodium 143, potassium 3.8, chloride 110, CO2 of 27, glucose 222, and creatinine 0.8. So, at this time, we will modify his Levemir and increase the Levemir to 46 units subcu at bedtime daily to start tonight. We will continue the low-dose correction scale using Humalog insulin as given. We will also continue the same Humalog insulin given as 20 units subcu t.i.d. before meals to allow for dose equilibration as noted. He will follow with his primary physician for outpatient and ongoing diabetic and medical management. We will obtain serial chemistries and supplement accordingly as needed. We will follow. Bella Sykes MD
[2017-07-23] MEDS ORDERED: Insulin Detemir 100 Units/ml Inj SC SCH (22:00)
--- NOTE | 2017-07-24 00:49 | CP.PCM.PN ---
Subjective - Date & Time of Evaluation Date of Evaluation: 07/23/17 Time of Evaluation: 14:35 - Subjective Subjective: Seen and examined at the bed side. Patient states that he is feeling better but still feeling lightheadedness and not sure if he can ambulate well. PT/OT evaluation consulted. Blood sugar has been ranging B/N 200-300 mg/dl despite high dose of Insulin. Patient was started on Levemir 46Units and Humalog 20 Units TID with Meals. No other complaint. Objective - Vital Signs/Intake and Output Vital Signs (last 24 hours): Temp Pulse Resp BP Pulse Ox 98.4 F 92 H 19 108/64 99 07/24/17 00:00 07/24/17 00:00 07/24/17 00:00 07/24/17 00:00 07/24/17 00:00 - Medications Medications: Current Medications Dextrose (Dextrose 50% Inj) 0 ml IV STAT PRN; Protocol PRN Reason: Hypoglycemia Protocol Dextrose (Glutose 15) 0 gm PO ONCE PRN; Protocol PRN Reason: Hypoglycemia Protocol Enoxaparin Sodium (Lovenox) 30 mg SC DAILY [facility] PRN Reason: Protocol Last Admin: 07/23/17 09:52 Dose: 30 mg Glucagon (Glucagen Diagnostic Kit) 0 mg IM STAT PRN; Protocol PRN Reason: Hypoglycemia Protocol Insulin Detemir (Levemir) 46 units SC HS [facility] Last Admin: 07/23/17 21:43 Dose: 46 units Insulin Human Lispro (Humalog) 0 units SC ACHS [facility] PRN Reason: Protocol Last Admin: 07/23/17 21:44 Dose: Not Given Insulin Human Lispro (Humalog) 20 units SC TIDAC [facility] Last Admin: 07/23/17 17:27 Dose: 20 units Sodium Phosphate (Potassium/Sodium Phosphate) 250 mg PO DAILY [facility] Last Admin: 07/23/17 09:51 Dose: 250 mg - Labs Labs: 07/21/17 08:20 07/23/17 08:51 - Constitutional Appears: Well, No Acute Distress - Head Exam Head Exam: ATRAUMATIC, NORMAL INSPECTION, NORMOCEPHALIC - Eye Exam Eye Exam: EOMI, Normal appearance, PERRL Pupil Exam: NORMAL ACCOMODATION, PERRL - ENT Exam ENT Exam: Mucous Membranes Moist, Normal Exam - Neck Exam Neck Exam: Full ROM, Normal Inspection. absent: Lymphadenopathy - Respiratory Exam Respiratory Exam: Clear to Ausculation Bilateral, NORMAL BREATHING PATTERN - Cardiovascular Exam Cardiovascular Exam: REGULAR RHYTHM, +S1, +S2. absent: Murmur - GI/Abdominal Exam GI & Abdominal Exam: Soft, Normal Bowel Sounds. absent: Tenderness - Extremities Exam Extremities Exam: Full ROM, Normal Capillary Refill, Normal Inspection. absent : Joint Swelling, Pedal Edema - Back Exam Back Exam: NORMAL INSPECTION - Neurological Exam Neurological Exam: Alert, Awake, CN II-XII Intact, Oriented x3 - Psychiatric Exam Psychiatric exam: Normal Affect, Normal Mood - Skin Skin Exam: Dry, Intact, Normal Color, Warm Assessment and Plan (1) DKA (diabetic ketoacidosis) Assessment & Plan: Altered Mental Status- Resolved Kussmaul Breathing-Resolved Non-compliant To Medication- Educated by me, and General Expeditor; HgA1C 14.5 Transfer to [facility] Heart Healthy Diabetic Diet- Educated by A dietitian IVF D/C Regular Insulin Infusion Continue Levemir, Pre-Meal Humalog TID and Accu-check with Low Coverage Monitor BMP, Mag and Phos Level q4hrs Endo onboard Status: Acute (2) DVT prophylaxis Status: Acute Priority: Medium Status: Acute
[2017-07-24] MEDS: Insulin Lispro (humaLOG) 100 Units/ml Inj SC SCH ×6 (08:13→17:26)
[2017-07-24] MEDS: Enoxaparin 30 mg Syringe SC SCH (08:20)
[2017-07-24 16:17] VITALS: BP 117/79; PULSE 96; RESP 18; TEMP 98.1; O2SAT 99
--- NOTE | 2017-07-24 17:20 | CP.PCM.DIS ---
Provider - Provider Date of Admission: 07/19/17 13:27 Attending physician: Franki Martinez MD Primary care physician: Provider TBD Time Spent in preparation of Discharge (in minutes): 40 Diagnosis - Discharge Diagnosis (1) DKA (diabetic ketoacidosis) Status: Resolved Priority: High Hospital Course - Lab Results Lab Results: Micro Results 07/22/17 14:11 Nose MRSA Culture (Admit) - Final MRSA NOT DETECTED 07/19/17 17:00 Nose MRSA Culture (Admit) - Final MRSA NOT DETECTED Most Recent Lab Values WBC 11.5 K/uL (4.8-10.8) H 07/21/17 08:20 RBC 4.37 Mil/uL (4.40-5.90) L 07/21/17 08:20 Hgb 12.6 g/dL (12.0-18.0) D 07/21/17 08:20 Hct 37.3 % (35.0-51.0) 07/21/17 08:20 MCV 85.4 fl (80.0-94.0) D 07/21/17 08:20 MCH 28.9 pg (27.0-31.0) 07/21/17 08:20 MCHC 33.9 g/dL (33.0-37.0) 07/21/17 08:20 RDW 13.4 % (11.5-14.5) 07/21/17 08:20 Plt Count 198 K/uL (130-400) D 07/21/17 08:20 MPV 11.0 fl (7.2-11.7) 07/19/17 11:39 Neut % (Auto) 89.2 % (50.0-75.0) H 07/19/17 11:39 Lymph % (Auto) 4.2 % (20.0-40.0) L 07/19/17 11:39 Bond % (Auto) 6.2 % (0.0-10.0) 07/19/17 11:39 Eos % (Auto) 0.0 % (0.0-4.0) 07/19/17 11:39 Baso % (Auto) 0.4 % (0.0-2.0) 07/19/17 11:39 Neut # 14.2 K/uL (1.8-7.0) H 07/19/17 11:39 Lymph # 0.7 K/uL (1.0-4.3) L 07/19/17 11:39 Bond # 1.0 K/uL (0.0-0.8) H 07/19/17 11:39 Eos # 0.0 K/uL (0.0-0.7) 07/19/17 11:39 Baso # 0.1 K/uL (0.0-0.2) 07/19/17 11:39 Neutrophils % (Manual) 89 % (42-75) H 07/19/17 11:39 Lymphocytes % (Manual) 4 % (20-50) L 07/19/17 11:39 Monocytes % (Manual) 6 % (0-10) 07/19/17 11:39 Myelocytes % 1 % (0-0) H 07/19/17 11:39 Platelet Estimate Normal (NORMAL) 07/19/17 11:39 Anisocytosis (manual) Slight 07/19/17 11:39 pCO2 10 mm/Hg (35-45) L* 07/19/17 11:47 pO2 106 mm/Hg (80-100) H 07/19/17 11:47 HCO3 5.8 mmol/L (21-28) L* 07/19/17 11:47 ABG pH 7.09 (7.35-7.45) L* 07/19/17 11:47 ABG Total CO2 3.3 mmol/L (22-28) L 07/19/17 11:47 ABG O2 Saturation 100.4 % (95-98) H 07/19/17 11:47 ABG Base Excess -24.5 mmol/L (-2.0-3.0) L 07/19/17 11:47 Syed Test Yes 07/19/17 11:47 ABG Potassium 4.7 mmol/L (3.6-5.2) 07/19/17 11:47 A-a O2 Difference 595.0 mm/Hg 07/19/17 11:47 Sodium 142.0 mmol/L (132-148) 07/19/17 11:47 Chloride 110.0 mmol/L (98-107) H 07/19/17 11:47 Glucose > 750 mg/dL (75-110) H* 07/19/17 11:47 Lactate 3.7 mmol/L (0.7-2.1) H 07/19/17 11:47 FiO2 100.0 % 07/19/17 11:47 Crit Value Called To Dr niecy rodarte 07/19/17 11:47 Crit Value Called By Maxwell 07/19/17 11:47 Crit Value Read Back Y 07/19/17 11:47 Blood Gas Notified Time 1157 07/19/17 11:47 Sodium 143 mmol/l (132-148) 07/23/17 08:51 Potassium 3.8 MMOL/L (3.6-5.0) 07/23/17 08:51 Chloride 110 mmol/L (98-107) H 07/23/17 08:51 Carbon Dioxide 27 mmol/L (22-30) 07/23/17 08:51 Anion Gap 10 (10-20) 07/23/17 08:51 BUN 13 mg/dl (9-20) 07/23/17 08:51 Creatinine 0.8 mg/dl (0.8-1.5) 07/23/17 08:51 Est GFR ( Amer) > 60 07/23/17 08:51 Est GFR (Non-Af Amer) > 60 07/23/17 08:51 POC Glucose (mg/dL) 218 mg/dL (65-110) H 07/24/17 15:38 Random Glucose 222 mg/dL (75-110) H 07/23/17 08:51 Hemoglobin A1c 14.3 % (4.2-6.5) H 07/22/17 04:20 C-Peptide 0.50 ng/mL (0.80-3.85) L 07/22/17 04:20 Calcium 8.4 mg/dL (8.4-10.2) 07/23/17 08:51 Phosphorus 1.6 mg/dl (2.5-4.5) L 07/21/17 09:19 Magnesium 2.5 MG/DL (1.6-2.3) H 07/21/17 09:19 Total Bilirubin 0.7 mg/dl (0.2-1.3) 07/23/17 08:51 AST 20 U/L (17-59) 07/23/17 08:51 ALT 34 U/L (21-72) 07/23/17 08:51 Alkaline Phosphatase 95 U/L (38-126) 07/23/17 08:51 Total Protein 6.3 G/DL (6.3-8.2) 07/23/17 08:51 Albumin 3.0 g/dL (3.5-5.0) L 07/23/17 08:51 Globulin 3.3 gm/dL (2.2-3.9) 07/23/17 08:51 Albumin/Globulin Ratio 0.9 (1.0-2.1) L 07/23/17 08:51 Triglycerides 153 mg/DL (0-149) H 07/22/17 04:20 Cholesterol 160 mg/dL (0-199) 07/22/17 04:20 LDL Cholesterol Direct 111 mg/dL (0-129) 07/22/17 04:20 HDL Cholesterol 25 MG/DL (30-70) L 07/22/17 04:20 Amylase 114 U/L (30-110) H 07/21/17 11:00 Lipase 320 U/L (23-300) H 07/21/17 11:00 TSH 3rd Generation 3.13 mIU/ML (0.46-4.68) 07/22/17 04:20 Arterial Blood Potassium 4.7 mmol/L (3.6-5.2) 07/19/17 11:47 Urine Color Straw (YELLOW) 07/19/17 19:00 Urine Clarity Clear (Clear) 07/19/17 19:00 Urine pH 5.0 (5.0-8.0) 07/19/17 19:00 Ur Specific [place] 1.024 (1.003-1.030) 07/19/17 19:00 Urine Protein Negative mg/dL (NEGATIVE) 07/19/17 19:00 Urine Glucose (UA) >=500 mg/dL (Normal) 07/19/17 19:00 Urine Ketones 80 mg/dL (NEGATIVE) 07/19/17 19:00 Urine Blood Moderate (NEGATIVE) 07/19/17 19:00 Urine Nitrate Negative (NEGATIVE) 07/19/17 19:00 Urine Bilirubin Negative (NEGATIVE) 07/19/17 19:00 Urine Urobilinogen 0.2-1.0 mg/dL (0.2-1.0) 07/19/17 19:00 Ur Leukocyte Esterase Neg Francis/uL (Negative) 07/19/17 19:00 Urine RBC (Auto) 1 /hpf (0-3) 07/19/17 19:00 Urine Microscopic WBC < 1 /hpf (0-5) 07/19/17 19:00 Urine Bacteria Rare (<OCC) 07/19/17 19:00 - Hospital Course Hospital Course: A 52yoM was brought unresponsive, and Found to have Severe DKA with Blood sugar of 1000 mg/dl and treated with IVF, IV Insulin, Diabetic Educations and started on Insulin regimen. Called the pharmacy for all patient's Medications. Discharge Exam - Head Exam Head Exam: ATRAUMATIC, NORMAL INSPECTION, NORMOCEPHALIC - Eye Exam Eye Exam: EOMI, Normal appearance, PERRL Pupil Exam: NORMAL ACCOMODATION, PERRL - Neck Exam Neck exam: Full Rom, Normal Inspection - Respiratory Exam Respiratory Exam: Clear to PA & Lateral, NORMAL BREATHING PATTERN - Cardiovascular Exam Cardiovascular Exam: REGULAR RHYTHM, +S1, +S2 - GI/Abdominal Exam GI & Abdominal Exam: Normal Bowel Sounds, Soft. absent: Tenderness - Extremities Exam Extremities exam: full ROM, joint swelling, normal capillary refill - Back Exam Back exam: NORMAL INSPECTION. absent: CVA tenderness (L), CVA tenderness (R) - Neurological Exam Neurological exam: Alert, CN II-XII Intact, Normal Gait, Oriented x3, Reflexes Normal - Psychiatric Exam Psychiatric exam: Normal Affect, Normal Mood - Skin Skin Exam: Dry, Intact, Normal Color, Warm Discharge Plan - Discharge Medications Prescriptions: Insulin Glargine,Hum.rec.anlog [Lantus Solostar] 46 unit SQ HS #1 insuln.pen Insulin Aspart [Novolog FLEXPEN] 30 unit SQ DAILY 30 Days Insulin Aspart [Novolog FLEXPEN] 20 unit SQ DAILY 30 Days ml MDD 7:30 pm Albuterol HFA [Ventolin HFA 90 mcg/actuation (8 g)] 2 puff IH Q4 30 Days puff - Follow Up Plan Condition: GUARDED Disposition: HOME/ ROUTINE Instructions: Diabetic Ketoacidosis (DC), Meal Planning with Diabetes Exchanges (DC), Diabetic Ketoacidosis (GEN) Additional Instructions: pt. cleared for discharge to Home today by and Rx for insulin pen provided pt. will f/u with outpatient Referrals: Provider TBD, [Primary Care Provider] - Bella Sykes MD [Medical Doctor] - Franki Martinez MD [Staff Provider] -
--- NOTE | 2017-07-24 21:14 | PN ---
DATE: ENDOCRINOLOGY FOLLOWUP LOCATION: Room 652 SUBJECTIVE: This is a 52-yea-old male with recent uncontrolled type 2 insulin requiring diabetes, now being followed closely for metabolic management. He presented here with diabetic ketoacidosis and dehydration and since then improved clinically and metabolically as noted thereof. He received intensive insulin therapy with vigorous IV hydration as given. Today, his glucose values have ranged from 152 to 212 mg/dL. LABORATORY DATA: His latest chemistry shows a BUN of 13, sodium 143, potassium 3.8, chloride 110, CO2 of 27, glucose 222, and creatinine 0.8. ASSESSMENT AND PLAN: So, at this time, we will continue the same basal and bolus insulin regimen with Levemir given as 4 to 6 units subcu at bedtime daily to start tonight. We will continue the Humalog given as 20 units subcu t.i.d. before meals as well. We will highly recommend that the patient go home on insulin therapy to continue the optimal metabolic control and as discussed with him at bedside, if indeed hypoglycemic levels supervene in the next few weeks or months, then he can undergo adjustments of his insulin regimen and possibly start him also on oral hypoglycemic drug therapy given in combination to optimize metabolic control. Home glucose monitoring has been highly advised as this will be the only way that we can follow his glucose levels at home to be able to do dose adjustments of his medications. He will follow up with his primary doctor for outpatient diabetic and medical management. Bella Sykes MD
== END 2017-07-24 18:00 | disposition home or self-care (01) | DRG 638 ==
LOC: SUPCPDRO 11:19 → H.ER 11:19 → H.ERHOLD 13:27 → H.ICU/CCU 14:46 → H.MEDSURG1 07-22 11:15
PROVIDERS: ADMIT Internal Medicine; ATTEND Internal Medicine
DX: E11.10 Type 2 diabetes mellitus with ketoacidosis without coma (principal); Z68.41 Body mass index [BMI] 40.0-44.9, adult; E66.01 Morbid (severe) obesity due to excess calories; E87.0 Hyperosmolality and hypernatremia; E86.0 Dehydration; Z79.4 Long term (current) use of insulin; Z91.14 Patient's other noncompliance with medication regimen; Z91.012 Allergy to eggs; Z91.013 Allergy to seafood; I10 Essential (primary) hypertension; E78.5 Hyperlipidemia, unspecified; F10.20 Alcohol dependence, uncomplicated; J45.909 Unspecified asthma, uncomplicated